=== PATIENT | male | born 1945 | race Caucasian/White ===

== ENCOUNTER 2024-07-25 14:04 | Outpatient (REF) | payer MEDICARE, OTHER, SELFPAY | END 2024-07-25 14:05 | disposition home or self-care (01) | LOC: CF 14:04 | DX: Z13.89 Encounter for screening for other disorder (principal) ==

== ENCOUNTER 2024-07-30 12:59 | Outpatient (AMB) | payer MEDICARE, OTHER, SELFPAY ==
[2024-07-30 13:06] VITALS: BMI 26.4
--- NOTE | 2024-07-30 13:06 | HO.SPINEOV ---
Vital Signs 07/30/24 13:06 Height 6 ft 1 in Weight 200 lb BMI 26.4 Intake Visit Reasons: Back pain Intake Note: Mr. Barkley is here today c/o low back pain that radiates to the legs causing numbness. Rn First Assistant Required: No Allergies No Known Allergies Allergy (Verified 07/30/24 13:07) Physical Exam Vital Signs: BMI result Body Mass Index 26.4 Assessment & Plan Assessment & Plan (1) Lumbar stenosis with neurogenic claudication: Code(s): M48.062 - Spinal stenosis, lumbar region with neurogenic claudication Category: Medical (2) Neural foraminal stenosis of lumbar spine: Code(s): M48.061 - Spinal stenosis, lumbar region without neurogenic claudication Category: Medical (3) Lumbar disc herniation with radiculopathy: Code(s): M51.16 - Intervertebral disc disorders with radiculopathy, lumbar region Category: Medical (4) Scoliosis of lumbar region due to degenerative disease of spine in adult: Code(s): M41.56 - Other secondary scoliosis, lumbar region Category: Medical Plan Dear colleague Thank you for referring Guera Barkley to the office today with a chief complaint of left-sided back pain and left leg pain. HPI: This 78-year-old male is known with spinal stenosis for several years. He saw a spine surgeon in the past but decided not to undergo any procedure. He has left-sided back pain, left leg fatigue and left leg weakness that have progressed over the years. His tells me that over the summer he could hardly walk. He constantly wants to sit down to relieve his symptoms. To make matters worse, he developed a lumbar radiculopathy a few weeks ago that radiates all the way into his foot. This pain is constant and increases with coughing and sneezing. Laying in a position improves this symptom. The following conservative treatment options were tried in the past without success antiinflammatories, tylenol, physical therapy, acupuncture physician guided home exercise plan, cortisone shots PMH: Open heart surgery 9 months ago, bilateral hip replacement, prostatectomy, type 2 diabetes Medications: Lisinopril, metoprolol, metformin, allopurinol, aspirin Allergies: NKDA Social history: . Retired. Nonsmoker Physical Exam: Pleasant male. Straight leg raise is positive with radiating pain in his left leg. He has a grade 3/5 left iliopsoas weakness. There is a 4/5 weakness of the left dorsiflexors. Normal to low reflexes. No pathological reflexes. Radiological Studies: MRI done at [place] shows a lumbar degenerative scoliosis, severe L3-4 central stenosis, severe right L4 foraminal stenosis, severe left L5 foraminal stenosis and an L5-S1 disc herniation compressing the left S1 nerve root. The latter finding is new compared to an MRI of 2021. Impression/Plan: This 78-year-old male suffering from unilateral (left) neurogenic claudication due to most likely the severe left L5 foraminal stenosis, although I can not completely exclude to severe L3-4 spinal stenosis. Additionally, he symptomatic from the L5-S1 disc herniation. I offered him a left L3-4 hemilaminotomy and L5 foraminotomy to address his unilateral neurogenic claudication symptoms. A 95% of the cases a lumbar radiculopathy will resolve within 4-6 weeks. Therefore we will revisit in the beginning of September to assess his radicular symptoms. I hope that those symptoms will be resolved and that an L5-S1 microdiskectomy is not required. He will obtain preoperative clearance from your office. 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 Thank you for allowing me to participate in your patients care. total time spent was 50 minutes in counseling ,coordination of plan, personal review of imaging, surgical decision making and subsequent plan Andrew Cruz MD, PhD Spine Fellowship Trained Neurosurgeon Director, [facility] Orders: Orders XR lumbar spine 4V min Today M41.56 - Other secondary scoliosis, lumbar region Coding Level of Care Code New Pt Level 4 (44585) Diagnoses Lumbar stenosis with neurogenic claudication M48.062 Neural foraminal stenosis of lumbar spine M48.061 Lumbar disc herniation with radiculopathy M51.16 Scoliosis of lumbar region due to degenerative disease of spine in adult M41.56
== END 2024-07-30 14:15 | disposition home or self-care (01) ==
PROVIDERS: PCP Family Medicine; Referring Provider Family Medicine; Visit Provider Neurological Surgery
DX: M48.062 Spinal stenosis, lumbar region with neurogenic claudication (principal); M48.061 Spinal stenosis, lumbar region without neurogenic claudication; M51.16 Intervertebral disc disorders with radiculopathy, lumbar region; M41.56 Other secondary scoliosis, lumbar region
CPT/HCPCS: 99204

== ENCOUNTER 2024-07-30 12:59 | Outpatient (REF) | payer MEDICARE, OTHER, SELFPAY | END 2024-07-30 13:00 | disposition home or self-care (01) | LOC: HO.HOSX 12:59 | PROVIDERS: PCP Family Medicine; Referring Provider Family Medicine; Visit Provider Neurological Surgery | DX: M48.062 Spinal stenosis, lumbar region with neurogenic claudication (principal); M41.56 Other secondary scoliosis, lumbar region; M48.061 Spinal stenosis, lumbar region without neurogenic claudication; M51.16 Intervertebral disc disorders with radiculopathy, lumbar region | CPT/HCPCS: 72110; 99202 ==

== ENCOUNTER 2024-10-03 10:49 | Outpatient (AMB) | payer MEDICARE, OTHER, SELFPAY ==
--- NOTE | 2024-10-03 11:17 | A.SPINEOV_ITS ---
Intake Visit Reasons: Finalize surgical plan Intake Note: Mr. Barkley is here today to Discuss Surgical plan. Drapery Counselor Required: No Allergies No Known Allergies Allergy (Verified 10/03/24 11:18) Assessment & Plan Assessment & Plan (1) Lumbar stenosis with neurogenic claudication: Code(s): M48.062 - Spinal stenosis, lumbar region with neurogenic claudication Category: Medical Plan Dear colleague, On 10/03/2024 I saw for follow-upGuera Barkley to finalize the surgical plan. The lumbar radiculopathy disappeared which eliminates the need for the L5-S1 microdiskectomy. We are left with the neurogenic claudication symptoms that are predominantly on the left side but may also be in the right leg intermittently. Therefore I propose to do an L3-4 decompression, left-sided approach and a left L5 foraminotomy. The procedure the expected outcome was explained and discus sed. 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 The surgery is planned for November 20. The patient is diabetic and therefore needs to be scheduled early in the morning. Coding Level of Care Code Est Pt Level 3 (36922) Diagnoses Lumbar stenosis with neurogenic claudication M48.062
== END 2024-10-03 11:55 | disposition home or self-care (01) ==
PROVIDERS: PCP Family Medicine; Visit Provider Neurological Surgery
DX: M48.062 Spinal stenosis, lumbar region with neurogenic claudication (principal)
CPT/HCPCS: 99213

== ENCOUNTER → 2024-10-03 10:49 | Outpatient (BNVA) | payer MEDICARE, OTHER, SELFPAY | PROVIDERS: PCP Family Medicine; Visit Provider Neurological Surgery | DX: M48.062 Spinal stenosis, lumbar region with neurogenic claudication (principal) | CPT/HCPCS: 99212 ==

== ENCOUNTER 2024-11-20 07:28 | Day surgery (SDC) | payer MEDICARE, OTHER, SELFPAY ==
[2024-10-28 12:38] VITALS: BP 172/76; PULSE 66; RESP 20; O2SAT 98; BMI 26.4
--- NOTE | ~2024-11-20 | FL_ITS ---
EXAMINATION: FL GUIDANCE ONLY HISTORY: Left L3-L4 Decompression, Left L5 Foraminotomy COMPARISON: Correlation is made to plain films of the lumbar spine dated 07/30/2024. TECHNIQUE: Fluoroscopy time: 0.1 minutes. Cumulative Dose: 8.93 mGy. DAP: 1.56 mGym2 Images: 2. FINDINGS: Fluoroscopic spot films of the lumbar spine in the lateral projection demonstrate probes directed toward the L4 and S1 vertebral bodies from a posterior approach. FL/FL guidance in OR IMPRESSION: Fluoroscopy during procedure. Please see procedure report for additional information. Electronically signed by: Garret Salazar MD 11/21/2024 03:[address] [facility]
--- NOTE | 2024-11-20 07:03 | MHC.SHP ---
Pre-Procedural Eval Section A - 24 Hr Update-Section A only Date of Service: 11/20/24 The patient is an INPATIENT: No Changes since office visit: No Cold of Flu in the past 2 weeks, No New Medical Problems, No Changes in Medication and No Patient answered all questions The patient has been examined within 24 hours of the surgical procedure. The History & Physical has been completed within 30 days and I have reviewed it.: No Section B - Complete if H&P > 30 days Chief Complaint: Spinal stenosis, lumbar region with neurogenic Allergies: Allergies Allergy/AdvReac Type Severity Reaction Status Date / Time No Known Allergies Allergy Verified 10/03/24 11:18 Review of Systems Sugical H&P ROS: Negative: Constitution, Cardiovascular, Respiratory, Neurological, Psychiatric, Hem-Onc, Allergic/Immunologic, Gastrointestinal, Genitourinary, Musculoskeletal, Integumentary, Endocrine and Eyes/Ears/Nose/Throat Exam Surgical H&P Exam: Normal: HEENT, Normal: Heart, Normal: Lungs, Normal: Extremities, Normal: Abdomen, Normal: Skin and Normal: Neurological (awake, alert,oriented x 3 ) Plan Diagnosis/Plan: Unchanged L3-4 decompression, left L5 foraminotomy Time Spent With Patient Time: Total time managing care of this patient today __5__ minutes.
--- NOTE | 2024-11-20 07:04 | P.DS_ITS ---
DS: Providers Provider Date of Service: 11/20/24 Date of discharge: 11/20/24 Primary care physician: Molina Dias MD Admitting clinician: Andrew Cruz DS: Diagnosis Discharge Diagnosis (1) Lumbar disc herniation with radiculopathy: Status: Acute DS: Summary Time Attestation Discharge Coordination Time (in mins): 5 Quality: Safe Use of Opioids Does Pt have an Active Cancer Diagnosis on the Problem List?: No Quality: Stroke Does the patient have a stroke diagnosis?: No Physical Exam Vital Signs: Vital Signs: Last Vital Signs Pulse 66 10/28/24 12:38 Resp 20 10/28/24 12:38 BP 172/76 H 10/28/24 12:38 Pulse Ox 98 10/28/24 12:38 O2 Del Method Room Air 10/28/24 12:38 BMI result Body Mass Index 26.4 Discharge Plan Discharge Patient Disposition: Home, Self-Care Referrals: Molina Dias MD [Primary Care Provider] - 1 Week Discharge Medications: New oxycodone 5 mg tablet 5 mg PO Q4H PRN (Reason: pain) Qty: 30 0RF Rx Instructions: Partial Fill upon patient request. docusate sodium [Colace] 100 mg capsule 100 mg PO BID Qty: 20 0RF Continued multivitamin Tablet 1 tab PO QAM metformin 1,000 mg Tablet 1,000 mg PO BID allopurinol 300 mg tablet 150 mg PO 3XW metoprolol succinate 25 mg Tablet Extended Release 24 Hr 12.5 mg PO BEDTIME albuterol sulfate 90 mcg/actuation Hfa Aerosol Inhaler 2 puff INHALATION Q4-6H PRN (Reason: Shortness Of Breath Or Wheezing) lisinopril 2.5 mg Tablet 2.5 mg PO QAM cholecalciferol (vitamin D3) [Vitamin D3] 50 mcg (2,000 unit) Capsule 50 mcg PO BEDTIME Repatha SureClick 140 mg/mL Pen Injector 140 mg SUBCUT Q2W Ozempic 0.25 mg or 0.5 mg (2 mg/3 mL) Pen Injector 0.5 mg SUBCUT QWEEK Rx Instructions: takes on flaxseed oil 1,000 mg Capsule 1,000 mg PO QAM Rx Instructions: administer with a meal vitamin B complex Tablet 1 tab PO DAILY calcium carbonate 500 mg calcium (1,250 mg) Tablet,Chewable 1,000 mg PO BEDTIME Glucosamine Chondroitin 550-30-1 mg Capsule 1 cap PO QAM fluticasone propion-salmeterol [Wixela Inhub] 250-50 mcg/dose Blister With Device 1 inh INHALATION BID Held aspirin 81 mg Tablet,Delayed Release (Dr/Ec) 81 mg PO QAM Hold Instructions: Resume on 11/20/24. you may resume in one week after surgery Discharge Orders: Discharge Order (Routine); Ordered 11/20/24 Ordered By: Nehemias De Santiago Diet: Advance to usual diet Activity on Discharge: As tolerated Activity Restrictions/Additional Instructions: After your spinal surgery we ask you to observe the following restrictions/guid elines: Activity: It is normal to feel some discomfort as you increase your activity, but that will improve with time. We ask you avoid heavy lifting or acitivities that cause pain. As a general rule, 8lbs is a safe limit for lifting right after surgery. Walk as much as you feel comfortable but not to exhaustion. You will feel extra tired the first few days after surgery. Stay well hydrated. It is OK to walk up and down stairs You may return to driving when you are off narcotics (such as vicodin, oxycodone, dilaudid, etc), and you are back to normal functional capacity. If you have any concerns please check with office before driving. Return to work is specific to each patient and each surgery, so please speak with your doctor/PA at first follow up. Please bring paperwork such as FMLA at that time if you need it filled out. Medications: For optimum pain control, it is best to start with a combination of 500 mg of Tylenol every 4 hours with 600 mg of Motrin every 8 hours, and use narcotics as needed in between for breakthrough pain. We will give you a short supply of narcotics after surgery (usually one weeks worth). If you need more please call the office but do not use more than prescribed. You will need to give our office 48 hours notice if you need narcotics refilled and we do not fill narcotics on weekends or evenings. If you are on a narcotic, it is a good idea to take a stool softener such as colace or senna to avoid constipation If you take blood thinner such as aspirin, Plavix, Coumadin, Effient, Eliquis etc for conditions such as Afib, DVT, Pulmonary embolus, coronary disease, stents etc please speak with your surgeon about specific details as to when you can resume these medications. You can resume NSAIDs on post op day 1 (eg: Motrin, Naproxen, etc). Follow up: Please call the office, , after surgery to arrange a 3 week follow up for wound check. Wound Care: You may remove your dressing on the first day after surgery. ?You may ?leave open to air. Please do not remove the steri strips underneath. they will fall off on their own in one week. IT IS NORMAL FOR THE WOUND TO OOZE OR BE BLOODY FOR A FEW DAYS AFTER SURGERY. ?IF THIS HAPPENS JUST PLACE NEW DRESSING OVER IT TO AVOID STAINING CLOTHES. You may shower on post op day # 1 We ask that you do not let the water soak the wound. If it does get wet, just towel dry lightly. Please do not scrub your incision or place any type of chemical/ointment on the wound. No tub baths, pools or jacuzzis for one month. If you have any leaking or redness from your wound, or fevers, please call office Print Language: Slovak
[2024-11-20] MEDS: methocarbamoL 750 MG TABLET PO (07:54)
[2024-11-20] MEDS: Gabapentin 300 MG CAPSULE PO (07:56)
--- NOTE | 2024-11-20 07:58 | HO.ANESPROP2 ---
Documented by User: Briana Pearson NP 11/19/24 12:29 HPI - Anesthesia Eval Consult details Narrative: 79yo M for L3-4 Lumbar Decompression (left sided approach),LEFT L5 Foraminotomy, 11/20/24 Recent URI with productive white phlegm, resolving No CP/SOB with gym (bike, rower, strength) Medically optimized per PCP Cardiac optimized. 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 (Acute) Past Medical History Medical History Aortic stenosis Neuropathy ASHD (arteriosclerotic heart disease) Elevated cholesterol Gout Arthritis Prostate cancer Iron deficiency anemia HTN (hypertension) Asthma Type 2 diabetes mellitus Atrial fibrillation Lumbar radiculopathy Lumbar stenosis Family History Family history of problems with anesthesia: No Surgical History Surgical History Hx of nasal polypectomy Hx of hand surgery Hx of prostatectomy H/O colonoscopy History of hip surgery Hx of cardiac catheterization Hx of CABG History of Problems with Anesthesia: No Social History Social History Are you a primary elderly caregiver to a significant other at home: No Do you presently have visiting nurse or other home services: No Comment: advised of trip hazard Patient Tobacco Use Status: Former Tobacco user Tobacco use type: Cigarette Years Smoked: 10 Use of substances other than those prescribed or required for medical reasons: No Have you been hit, kicked, punched, or otherwise hurt by someone within the past year? If so, by whom?: No Spiritual Healthcare Practices: none Mormon Healthcare Practices: none Cultural Healthcare Practices: none Are you DNR?: No Advance Directives Information Provided: Yes (as above noted) Advance Directives on File: No Recently lost weight without trying: No Eating poorly because of decreased appetite: No Nutrition Risks: Surgical patient >75years Poor oral hygiene: No (extracted teeth-future plan for implants) Meds Allergies Allergy/AdvReac Type Severity Reaction Status Date / Time No Known Allergies Allergy Verified 10/03/24 11:18 Home Medications ?Medication ?Instructions ?Recorded ?Confirmed ?Last Taken ?Type albuterol sulfate 90 mcg/actuation 2 puff inhalation Q4-6H PRN 10/27/24 10/28/24 Unknown History aerosol inhaler Shortness Of Breath Or Wheezing allopurinol 300 mg tablet 150 mg PO 3XW 10/27/24 10/28/24 Unknown History cholecalciferol (vitamin D3) 50 50 mcg PO BEDTIME 10/27/24 10/28/24 Unknown History mcg (2,000 unit) capsule (Vitamin D3) evolocumab 140 mg/mL subcutaneous 140 mg subcut Q2W 10/27/24 10/28/24 Unknown History pen injector (Rosy Byrnes) lisinopril 2.5 mg tablet 2.5 mg PO QAM 10/27/24 10/28/24 Unknown History metformin 1,000 mg tablet 1,000 mg PO BID 10/27/24 10/28/24 Unknown History metoprolol succinate 25 mg 12.5 mg PO BEDTIME 10/27/24 10/28/24 Unknown History tablet,extended release 24 hr multivitamin 1 tab PO QAM 10/27/24 10/28/24 Unknown History semaglutide 0.25 mg or 0.5 mg (2 0.5 mg subcut QWEEK 10/27/24 10/28/24 Unknown History mg/3 mL) subcutaneous pen injector (Ozempic) aspirin 81 mg tablet,delayed 81 mg PO QAM 10/28/24 10/28/24 Unknown History release calcium carbonate 1,000 mg PO BEDTIME 10/28/24 10/28/24 Unknown History flaxseed oil 1,000 mg capsule 1,000 mg PO QAM 10/28/24 10/28/24 Unknown History fluticasone 250 mcg-salmeterol 50 1 inh inhalation BID 10/28/24 10/28/24 Unknown History mcg/dose blistr powdr for inhalation (Wixela Inhub) glucosamine sulf dipot 1 cap PO QAM 10/28/24 10/28/24 Unknown History chlr,msm,chond 550 mg-C 30 mg-jared 1 mg capsule (Glucosamine Chondroitin) vitamin B complex 1 tab PO DAILY 10/28/24 10/28/24 Unknown History Exam Height,Weight and Vital Signs: Height 6 ft 1 in Weight 90.718 kg Last Vital Signs Pulse 66 10/28/24 12:38 Resp 20 10/28/24 12:38 BP 172/76 H 10/28/24 12:38 Pulse Ox 98 10/28/24 12:38 O2 Del Method Room Air 10/28/24 12:38 Pertinent Lab Results Pertinent Lab Results: CBC and CMP 10/2024 from outside facility [place] Narrative Narrative: EKG 10/2024 NSR @ 75 Stress ECHO 09/2023 LVEF 60% JOVANI 1.4 Airway Mallampati Class: II TM Dist: >3cm Neck ROM: Full Loose/Missing/Broken Teeth: Yes (Left lower molars missing) Heart: RRR + murmur Lungs: CTAB Assessment and Plan Assessment Anesthesia Assessment: Anesthesia Plan Discussed and PAT Visit Final Anesthetic Review Family History of Problems with Anesthesia: No History of Problems with Anesthesia: No Documented by User: Lisa Grimes DO 11/20/24 08:00 HPI - Anesthesia Eval Anesthesia Pre-Procedure Meds Is the patient on any of the following meds?: GLP1/DPP4 [facility] Past Medical History Medical History Aortic stenosis Neuropathy ASHD (arteriosclerotic heart disease) Elevated cholesterol Gout Arthritis Prostate cancer Iron deficiency anemia HTN (hypertension) Asthma Type 2 diabetes mellitus Atrial fibrillation Lumbar radiculopathy Lumbar stenosis Family History Family history of problems with anesthesia: No Surgical History Surgical History Hx of nasal polypectomy Hx of hand surgery Hx of prostatectomy H/O colonoscopy History of hip surgery Hx of cardiac catheterization Hx of CABG History of Problems with Anesthesia: No Social History Social History Are you a primary elderly caregiver to a significant other at home: No Do you presently have visiting nurse or other home services: No Comment: advised of trip hazard Patient Tobacco Use Status: Former Tobacco user Tobacco use type: Cigarette Years Smoked: 10 Use of substances other than those prescribed or required for medical reasons: No Have you been hit, kicked, punched, or otherwise hurt by someone within the past year? If so, by whom?: No Spiritual Healthcare Practices: none Mormon Healthcare Practices: none Cultural Healthcare Practices: none Are you DNR?: No Advance Directives Information Provided: Yes (as above noted) Advance Directives on File: No Recently lost weight without trying: No Eating poorly because of decreased appetite: No Nutrition Risks: Surgical patient >75years Poor oral hygiene: No (extracted teeth-future plan for implants) Meds Allergies Allergy/AdvReac Type Severity Reaction Status Date / Time No Known Allergies Allergy Verified 10/03/24 11:18 Home Medications ?Medication ?Instructions ?Recorded ?Confirmed ?Last Taken ?Type albuterol sulfate 90 mcg/actuation 2 puff inhalation Q4-6H PRN 10/27/24 10/28/24 Unknown History aerosol inhaler Shortness Of Breath Or Wheezing allopurinol 300 mg tablet 150 mg PO 3XW 10/27/24 10/28/24 Unknown History cholecalciferol (vitamin D3) 50 50 mcg PO BEDTIME 10/27/24 10/28/24 Unknown History mcg (2,000 unit) capsule (Vitamin D3) evolocumab 140 mg/mL subcutaneous 140 mg subcut Q2W 10/27/24 10/28/24 Unknown History pen injector (Rosy Byrnes) lisinopril 2.5 mg tablet 2.5 mg PO QAM 10/27/24 10/28/24 Unknown History metformin 1,000 mg tablet 1,000 mg PO BID 10/27/24 10/28/24 Unknown History metoprolol succinate 25 mg 12.5 mg PO BEDTIME 10/27/24 10/28/24 Unknown History tablet,extended release 24 hr multivitamin 1 tab PO QAM 10/27/24 10/28/24 Unknown History semaglutide 0.25 mg or 0.5 mg (2 0.5 mg subcut QWEEK 10/27/24 10/28/24 Unknown History mg/3 mL) subcutaneous pen injector (Ozempic) aspirin 81 mg tablet,delayed 81 mg PO QAM 10/28/24 10/28/24 Unknown History release calcium carbonate 1,000 mg PO BEDTIME 10/28/24 10/28/24 Unknown History flaxseed oil 1,000 mg capsule 1,000 mg PO QAM 10/28/24 10/28/24 Unknown History fluticasone 250 mcg-salmeterol 50 1 inh inhalation BID 10/28/24 10/28/24 Unknown History mcg/dose blistr powdr for inhalation (Wixela Inhub) glucosamine sulf dipot 1 cap PO QAM 10/28/24 10/28/24 Unknown History chlr,msm,chond 550 mg-C 30 mg-jared 1 mg capsule (Glucosamine Chondroitin) vitamin B complex 1 tab PO DAILY 10/28/24 10/28/24 Unknown History Exam Exam Date and Time: 11/20/24 0758 Height,Weight and Vital Signs: Height 6 ft 1 in Weight 90.718 kg Last Vital Signs Pulse 66 10/28/24 12:38 Resp 20 10/28/24 12:38 BP 172/76 H 10/28/24 12:38 Pulse Ox 98 10/28/24 12:38 O2 Del Method Room Air 10/28/24 12:38 Airway Mallampati Class: I TM Dist: <=3cm Neck ROM: Full Loose/Missing/Broken Teeth: Yes (Left lower molars missing) Heart: S1S2, +murmur Assessment and Plan Assessment Anesthesia Assessment: Anesthesia Plan Discussed and Chart Reviewed Final Anesthetic Review Family History of Problems with Anesthesia: No History of Problems with Anesthesia: No NPO: Yes ASA Class: III Final Preanesthetic Review: No Changes in Pt Med Stat, Meds/Allgs Chart Reviewed, Consent Obtained/Reviewed and Anes Risks/Benef Reviewed Patient Risk: Intermediate Procedure Risk: Intermediate Anesthetic Plan Anesthetic Plan: GA and Agree w/ Assess. and Plan Disposition: Standard PACU
[2024-11-20 08:03] LABS: Glucose, Whole Blood 157 mg/dL (60-115)
[2024-11-20] MEDS: Lactated Ringers 1,000 ML 100 ML IVCONT (08:06)
[2024-11-20 08:07] VITALS: BP 158/76; PULSE 74; RESP 15; TEMP 36.6; O2SAT 97
[2024-11-20] MEDS: ceFAZolin Sodium/Dextrose,Iso 2 GM/50 ML PIGGYBACK IV (09:15)
--- NOTE | 2024-11-20 10:30 | P.OP_ITS ---
Operative Note Operative Note Date of Service: 11/20/24 Narrative: Preoperative Diagnosis: L3-4 central spinal stenosis/lateral recess stenosis and left L5 neuro foraminal stenosis Operation: Left L3-4 Laminotomy, Partial facetectomy and left L5 foraminotomy with use of microscope Consent Informed Consent was obtained for this operation. I have explained the nature, purpose and benefits of the operation. I have discussed the risks and benefit of the operation including possible complications or adverse events with patient/family. Alternative(s) were discussed with the patient with their relative benefits and risks as well as the consequences of not accepting the operation were included in obtaining consent. Surgeon: JUAN SPENCER MD, PHD Procedure Assisted By: Nehemias Dowell Description of Procedure This patient is suffering from predominantly left-sided radiculopathy. The MRI shows L3-4 spinal stenosis and severe left L5 foraminal stenosis the patient was offered decompression of these levels. The procedure complications were explained. The patient was consented. The patient was brought to the operating room and endotracheally intubated. The patient was turned in prone position on the Benjy frame. Prep and drape was done followed by timeout. The Physician medical office receptionist assistant provided access. A mid lumbar incision was made followed by release of the paravertebral muscle on the left side to expose the L3-L5 lamina and facet joints. An intraoperative x-ray was obtained to confirm the correct level. The microscope was brought in. I took over the procedure. The high-speed drill was used to do a left L3-4 laminotomy until flavum ligament was reached. A #2 Kerrison was used to expand the laminotomy near flush to the pedicles and to include a partial facetectomy. The flavum ligament was opened and resected with a #3 Kerrison to decompress the underlying thecal sac. The flavum ligament was removed to decompress the lateral recess and the exiting L4 nerve root. A long nerve hook could be easily passed along the medial side of the pedicle as a sign of adequate decompression. And then a left L5 laminotomy was done. Underlying dura was identified as well as the foramen. A partial facetectomy was done. The medial wall of the L5 pedicle was identified and then a foraminotomy was done to decompress the L5 nerve root. Despite all do removal it remained very hard to get an instrument fully out to the foramen. According to the MRI the stenosis was more of the medial side of foramen and therefore I thought this would be sufficient for the L5 nerve root decompression. The microscope was removed. Hemostasis was done. The physician medical office receptionist assistant close the Incision in 2 layers. Steri-Strips were used to approximate incision. An OpSite with Tegaderm was used to cover the incision. All sponge needle counts were correct. Patient was extubated and transported in stable is to recovery room. Anesthesia: General Estimated Blood Loss (ml): 20 mL Complications: None Duration of Surgery: 65 Minutes Postoperative Plan: Discharge to home
[2024-11-20 10:50] VITALS: BP 110/84; PULSE 60; RESP 16; TEMP 36.3; O2SAT 98
[2024-11-20 10:55] VITALS: BP 142/65; PULSE 65; RESP 15; O2SAT 98
[2024-11-20 11:00] VITALS: BP 138/63; PULSE 60; RESP 16; O2SAT 98
[2024-11-20 11:05] VITALS: BP 151/67; PULSE 64; RESP 16; O2SAT 96
[2024-11-20 11:20] VITALS: BP 152/56; PULSE 62; RESP 14; TEMP 36.5; O2SAT 98
== END 2024-11-20 12:22 | disposition home or self-care (01) ==
LOC: HO.SSS 07:29
PROVIDERS: PCP Family Medicine; Visit Provider Neurological Surgery
PROC: (CPT 63047; principal; 2024-11-20 09:30)
DX: M48.062 Spinal stenosis, lumbar region with neurogenic claudication (principal); M51.16 Intervertebral disc disorders with radiculopathy, lumbar region; M41.56 Other secondary scoliosis, lumbar region; I10 Essential (primary) hypertension; I48.91 Unspecified atrial fibrillation; Z95.1 Presence of aortocoronary bypass graft; J45.909 Unspecified asthma, uncomplicated; D50.9 Iron deficiency anemia, unspecified; E11.9 Type 2 diabetes mellitus without complications; Z79.51 Long term (current) use of inhaled steroids; Z79.899 Other long term (current) drug therapy; Z79.84 Long term (current) use of oral hypoglycemic drugs; Z79.85 Long-term (current) use of injectable non-insulin antidiabetic drugs; Z98.890 Other specified postprocedural states; Z87.891 Personal history of nicotine dependence
CPT/HCPCS: 63047; 82947; J0131; J0690; J1885; J2003; J2371; J2405; J2704; J3010

== ENCOUNTER → 2024-11-20 07:28 | Outpatient (BNV) | payer MEDICARE, OTHER, SELFPAY | PROVIDERS: PCP Family Medicine; Visit Provider Neurological Surgery | DX: M48.062 Spinal stenosis, lumbar region with neurogenic claudication (principal) | CPT/HCPCS: 63047; 63048; 99499 ==

== ENCOUNTER 2024-12-11 15:28 | Outpatient (AMB) | payer MEDICARE, OTHER, SELFPAY ==
--- NOTE | 2024-12-11 15:29 | HO.SPINEOV ---
Intake Visit Reasons: 1st post op Intake Note: Mr. Barkley is here today for his 1st post op. Urgent Care Physician Required: No Allergies No Known Allergies Allergy (Verified 12/11/24 15:29) Assessment & Plan Assessment & Plan (1) Lumbar disc herniation with radiculopathy: Code(s): M51.16 - Intervertebral disc disorders with radiculopathy, lumbar region Category: Medical Plan Mr Barkley is 3 weeks out from his lumbar foraminotomy. His leg pain is completely gone and he is walking better than he has an a long time. He has up to 3 miles. He still has chronic back pain, but it is very manageable to a point where he does not even need to take Tylenol. We discussed activity guidelines, restrictions and expectations after lumbar foraminotomy. His wound is healed up beautifully. I would like to see him back in 6 weeks for final checkup. I told him that if he is doing well, he does not need to come back for his final visit. Nehemias Cruz MD, PhD [facility] Coding Level of Care Code Global (59065) Diagnoses Lumbar disc herniation with radiculopathy M51.16
--- OUTSIDE RECORDS SUMMARY | 2024-12-11 18:59 | XMS_ITS | Data Portability ---
Author Organization ID - [facility], [facility] - INPATIENT Address [address] [place] [address] Care Team Providers Care Wardrobe Supervisor Name Role Phone [place] Primary Care Provider Assessment Encounter Date Assessment Date Assessment LastModified by Organization Details LastModified Time 09/08/2022 09/08/2022 Independent interpretation of the x-rays from today and the clinical examination of the index right total hip arthroplasty at 13 years in the revision total hip arthroplasty of 4-1/2 years? s table. He has excellent pain-free motion in both hips. His x-rays appear to be stable. He does have quite a lot of complaints from his lumbar spine into the leg which he believes is spinal stenosis. I would be tending to agree with him. We have discussed now the right SHAGGY at 13 years and the left SHAGGY revision at 4 1/2 years at the follow up visit. We have discussed the continued use of abductor strengthening and stretching and the continued attention to rehabilitation of the quadriceps and functional rehabilitation of the lower extremity in general. We have also discussed dislocation precautions and anti-biotic precautions. The anti-biotic precautions are to continue and they have been discussed in great detail. Antibiotic prescriptions available at any time. Leg lengths were discussed as well and the potential need for continuing functional rehabilitation to maintain the sense of proper pelvic balance. At this point I recommended revisit with Robbi. I believe his implants in his hips are stable. He will contact us if there is further problems with the leg that he believes is from the hip. At this point I believe his spinal stenosis may be the real culprit and he will be seeing Robbi in the upcoming weeks. All questions answered. [email or web address] Not available 09/08/2022 10:03:47 12/06/2022 12/06/2022 I personally reviewed his lumbar spine MRI from August 2022. There is severe multilevel disc degeneration and spondylosis. There may be a subtle anterolisthesis at L4-5. There is severe right and moderate left lateral recess narrowing at L4-5. There is moderately severe central stenosis at L3-4. There is mild stenosis at L2-3. At L1-2, there is moderate stenosis, in part from a central disc herniation. There is a mild left convex degenerative scoliosis. I personally reviewed earlier x-rays of the lumbar spine performed in September 2019. There is poor lumbar lordosis but no instability on flexion-extension. His was able to pull up May 2020 EMG results showiing mild sensorimotor polyneuropathy, left adductor longus denervation possibly secondary to his hip surgery, and possible mild chronic bilateral L4 radiculopathies. He will need a new EMG to localize the source of his current difficulty. His left leg heaviness could be from L1-2 stenosis, but the fact that his symptoms are largely unilateral makes this an unusual clinical pattern for central stenosis. His foot numbness could be from neuropathy. His left buttock pain could be from lower lumbar radiculopathy, but his MRI shows more neural compression in the lower lumbar spine on the right. The encounter occurs during a Public Health Emergency (PHE), as defined by law, due to respiratory-transm itted infectious disease. There was additional practice expense incurred due to the Public Health Emergency. This additional expense includes but is not limited to: ? Additional clinical staff and medical technical solution architect time for pre-screening ? Time spent reviewing COVID social distancing guidelines, precautions, instructions, and signage ? Patient symptom checking upon arrival ? Application, removal, and purchasing of additional PPE ? Additional cleaning of exam room, equipment, supplies, as well as cleaning supplies for that purpose. I spent 30 minutes on the day of the visit, preparing for the visit by reviewing records/test results, obtaining patient history, performing a medically necessary examination, counseling/educati ng the patient on lumbar stenosis, interpreting test results, ordering tests. [email or web address] Not available 12/28/2022 20:05:26 Plan of Treatment Reminders Order Date Submit Date Provider Last Modified By Organization Details Last Modified Time Details Appointments None recorded. Lab None recorded. Referral neurologis t referral 2022 023 CONSTANCE Mora MD, [address] [place], [address], 3 08:05:54 Procedures None recorded. Surgeries None recorded. Imaging None recorded. Medication Orders None recorded. Patient TargetsNo targets recorded. Patient Instructions Encounter Date Encounter Id Patient Instructions Last Modified By Organization Details Last Modified Time 09/08/2022 [id number] lumbar spinal stenosis: care instructions [email or web address] Not available 09/08/2022 10:05:47 Reason for Referral Neurologist Referral for Spi nal stenosis of lumbar region Consult/EMG - left lower extremity weakness/buttock pain, assess specific nerve root involvement Referring Physician: Robbi Vera, Neurosurgery, Encounter Date: 12/06/2022 Results Created Date Observation Date Name Description Value Unit Range Abnormal Flag Note LastModifiedBy Organization Detail LastModifiedTime 09/13/20 22 09/05/2022 MRI, lumba r spine , w/o contr ast No observ ation record ed. [email or web address] [facility] [address] [place], [address], 09/13/2022 11:17:34 Result Notes None recorded. Problems Name Problem SNOMED Code Status Onset Date Resolution Date Notes Provider Name and Address Organization Details Recorded Time Asthma 941937934 Active 2019 Not Available [facility] 2 22:13:03 Hypertensive disorder 14735895 Active 2019 Not Available [facility] 2 22:13:03 Diabetes mellitus 13723611 Active 2019 Not Available [facility] 2 22:13:03 Spinal stenosis of lumbar region 53966693 Active 2022 ROBBI VERA MD [address] [place] [address], [phone] , [facility] - [facility] 3 12:42:07 Problem Notes None recorded. Procedures Surgical History Date Name Laterality Status Provider Name and Address Organization Details Recorded Time 09/17/19 18 Orthopaedic Surgery completed Moni Manoli [facility] 09/08/2022 09:49:38 09/17/19 13 Other completed [facility] 12/06/2022 11:49:52 09/17/19 10 operation on prostate completed [facility] 12/06/2022 11:49:24 09/17/19 00 total replacement of hip completed [facility] 12/06/2022 11:49:36 09/17/18 60 procedure on nose completed Not Available [facility] 07/17/2022 22:13:43 Imaging Results Imaging Date Name Status LastModified by Organiz ation Details LastModified Time 09/05/2022 MRI, lumbar spine, w/o contrast completed [email or web address] [facility] [address] [place], [address], 09/13/2022 11:17:34 Procedure Notes None recorded. Medical Equipment None Reported. Allergies No known drug allergies Medications Name Sig Start Date Stop Date Status Note LastModified by Organization Details LastModified Time amoxicillin 500 mg capsule 10/10 completed Not Available Not Available Not Available prednisone 20 mg tablet 10/10 completed Not Available Not Available Not Available metformin 1,000 mg tablet active Not Available Not Available Not Available allopurinol 300 mg tablet active Not Available Not Available Not Available lisinopril 40 mg tablet 1/2 one day and a whole the other day active Not Available Not Available No t Available Vitamin C 08/25 completed Not Available Not Available Not Available albuterol 12/06 completed Not Available Not Available Not Available calcium active Not Available Not Avail able Not Available vitamin B complex 2019 active Not Available Not Available Not Avai lable Aspir-81 08/25 completed Not Available Not Available Not Available Vitamin D3 2019 active Not Available Not Available Not Avai lable [place] 3 2019 active Not Available Not Available Not Avai lable multivitami n active Not Available Not Available Not Available Advair Diskus active Not Available Not Available Not Available OneTouch Delica Lancets 30 gauge 10/10 completed Not Available Not Available Not Available Qvar RediHaler 80 mcg/actuati on HFA breath activated aerosol 08/25 completed Not Available Not Available Not Available Shingrix (PF) 50 mcg/0.5 mL intramuscul ar suspension, kit 10/10 completed Not Available Not Available Not Available Ozempic 0.25 mg or 0.5 mg (2 mg/1.5 mL) subcutaneou s pen injector Inject by subcutane ous route. active Not Available Not Available No t Available Glucosamine Chondroitin 2019 active Not Available Not Available Not Avai lable Vitals Date Recorded Body mass index (BMI) Body height Body weight Provider Name and Address Organization Details Last Updated DateTime 10/10/2019 29 kg/m2 185.42 cm 16020.32 g Not Available [facility] 07/17/2022 22:12:56 Date Recorded Body height Body mass index (BMI) Body weight Provider Name and Address Organization Details Last Updated DateTime 09/08/2022 186.69 cm 28 kg/m2 59675.36 g Moni Stockton [facility] 09/08/2022 09:48:24 Date Recorded Body height Body mass index (BMI) Body weight Provider Name and Address Organization Details Last Updated DateTime 12/06/2022 186.69 cm 28 kg/m2 20900.36 g Magui Chester [facility] 12/06/2022 11:46:51 Social History Question Answer Notes LastModified by Organizat ion Details LastModified Time Tobacco Smoking Status Former Smoker quit 40 years ago Magui [facility] 12/06/2022 11:48:53 What Is Your Level Of Alcohol Consumption? Occasional Information not available 09/08/2022 What Is Your Level Of Caffeine Consumption? Occasional Information not available 09/08/2022 Do You Or Have You Ever Used E-cigarettes Or Vape? Never Used Electronic Cigarettes Information not available 09/08/2022 What Is Your Occupation? Retired Information not available 09/08/2022 Have You Had Cortisone? Yes Information not available 09/08/2022 Do You Or Have You Ever Used Smokeless Tobacco? Never Used Smokeless Tobacco Information not available 09/08/2022 How Much Tobacco Do You Smoke? No Information not available 09/08/2022 What Types Of Sporting Activities Do You Participate In? Sailing Information not available 09/08/2022 How Many Years Have You Smoked Tobacco? 10 Information not available 09/08/2022 Sex: Unknown Functional Status Question Answer Note LastModified by Organizat ion Details LastModified Time What is your exercise level? Occasional Information not available 09/08/2022 Mental Status None recorded. Family History Relationship Description Onset Age of this Age Resolved Age Notes LastModified by Organization Details LastModified Time Father No current problems or disability Not available 09/08 09:49:21 Mother No current problems or disability Not available 09/08 09:49:21 Medical History Condition Response HIV or AIDS N High Blood Pressure Y Irregular Heartbeat N MRSA N Any Other Significant Medical Issues N Weight Gain / Loss N Hearing Loss N Angina, Heart Failure or Attack N Night Sweats N Seizures / Epilepsy N Osteoarthritis / Rheumatoid arthritis / Other Y Cancer Y Stroke N Ulcer / Stomach Bleeding / Indigestion N Visual Loss or Glaucoma N Blood Clots / Phlebitis N Heart Problems N Depression or Anxiety N Emphysema / Chronic Bronchitis N Reaction to General/Local Anesthesia N Hepatitis / Jaundice N Kidney / Bladder Infections N Diabetes Y Bleeding Disorder N Chemical Dependency / Alcoholism N Thyroid Disorder N Psoriasis / Skin Rash N Heart Disease N Pulmonary Embolism N Asthma / Shortness of Breath / Sleep Pharmacy Benefits Coordinator ea (please specify) Y Past Encounters Encounter ID Performer Location Encounter Start Date Encounter Closed Date Diagnosis/Indication Diagnosis SNOMED-CT Code Diagnosis ICD10 Code Diagnosis Note [id number] [facility] Office [address] [address] 10/10/2019 00:00:00 10/10/2019 19:58:13 [id number] LENA LAI MD [facility] Office [address] [address] 09/08/2022 09:16:41 09/08/2022 12:23:51 Osteoarthritis of bilateral hip joints 8918922754 48348 M16.0 History of total replacement of bilateral hip joints 1863368938 546926 Z96.643 Mechanical complication of internal joint prosthesis 489986683 T84.091D Spinal deandre nosis of lumbar region 74845541 M48.899 [id number] ROBBI VERA MD [address] [address] 12/06/2022 10:37:46 12/06/2022 13:56:26 Spinal stenosis of lumbar region 94840991 M48.062 Health Concerns Section Related Observation LastModified by Organization Detai ls LastModified Time None Recorded Concern Status LastModified by Organization Details LastModified Time None Recorded Advance Directives Directive None Recorded Payers Encounter Date Sequence Insurance Name Policy Number Policy Valentine Covered Member ID Valentine Member ID Guarantor Name 09/08/2022 1 [place]ARE [place]: [employer] Jorma Rubia [id number] Jorma Rubia 09/08/2022 2 [facility] PLAN - NAVIGATOR (PPO) [id number] Jorma Rubia [id number] Jorma Rubia 12/06/2022 1 [place]: [employer] Jorma Rubia [id number] Jorma Rubia 12/06/2022 2 [facility] [employer] PLAN - NAVIGATOR (PPO) [id number] Jorma Rubia [id number] Jorma Rubia Notes Date Note Type Note Provider Name and Address Organization Details Recorded Time 09/08/2022 text/html Patient is now 4-1/2 years after left total hip arthroplasty revision. He is 13 years after right index total hip arthroplasty. He reports his right hip is doing great. He is never had any problems whatsoever on the right side. Reports he has had left leg pain for some time even after the revision surgery. He is not certain is from the leg or if it may be from some of his lumbar stenosis. About 3 months ago he wrenched his back badly and has had some pain into the left leg and into his low back that seems to be slowly resolving. He had pain at the top of the leg which is slowly resolving. He has had no fevers or chills. He did have a wrench and fall at least a couple of different times with resulting pain to the legs right and left which have resolved but this left leg pain now seems to be resolving very slowly. He has been following with Robbi Chand. He will be visiting with him again soon. He has never had injections in his back but has had an MRI scan there. LENA LAI MD [address] [place] [address], [phone], [facility] 09/08/2022 10:05:52 12/06/2022 text/html I saw Mr. Barkley in Sep 2019 for leg pain. He feels maybe slightly worse than 3 years ago. He has some low back pain, but it's not a major issue. It is worse with flexion. He has no pain sitting or lying down. The left sided low back pain extends to his left buttock. He has no pain down into his left leg. He has numbness and tingling in his feet. He describes a 'lack of feeling' in his feet just to his ankles, initially on the left and now on both sides. This is actually worse at night, than when walking. He recalls having EMG testing about 3 years ago that was 'inconclusive'. He feels he can walk a mile, and then he's limited by a sense of fatigue in his left leg. ROBBI VERA MD [address] [place] [address], [phone], [facility] 12/28/2022 20:47:24
--- OUTSIDE RECORDS SUMMARY | 2024-12-11 18:59 | XMS_ITS | Encounter Summary ---
Author Organization [facility] Address [address] [place] [address] Care Team Providers Care Vp Customer Service Name Role Phone Molina Dias MD Primary Care Provider [phone] Encounter Details Date Type Department Care Team (Late st Contact Info) Description 10/29/2024 Orders Only EM Cardiac Noninvasive [address] [place] [address] Zoila Respiratory Therapy Manager, [address] [place] [address] Social History Tobacco Use Types Packs/Day Years Used Date Smoking Tobacco: Former Cigarettes Q uit: 1982 Smokeless Tobacco: Never Comments:: Alcohol Use Standard Drinks/Week Comments Not Currently 0 (1 standard drink = 0.6 oz pure alcohol) non-alcoholic beer made by [employer] [facility] Workboardities Answer Date Recorded In the past 12 months has th e electric, gas, oil, or water company threatened to shut off services in your home? No 10/14/2024 Hunger Vital Sign Answer Date Recorded Within the past 12 months, y ou worried that your food would run out before you got the money to buy more. Never true 10/14/19 25 Within the past 12 months, t he food you bought just didn't last and you didn't have money to get more. Never true 10/14/2024 Transportation Answer Date Recorded In the past 12 months, has l ack of reliable transportation kept you from medical appointments, meetings, work or from getting things needed for daily living? No 10/14/2024 Housing Answer Date Recorded Housing Risk Low 2 10/14/2024 Housing Risk Medium Not on file 10/14/2024 Housing Risk High Not on file 10/14/2024 What is your living situation today? LSSTEADY 10/14/2024 Sex and Gender Information Value Date Recorded Sex Assigned at Male 05/21/2021 8:13 AM EDT Legal Sex Male 12:55 AM EDT Gender Identity Male 05/21/2021 8:13 AM EDT Sexual Orientation Straight 05/21/2021 8: 13 AM EDT Occupation Industry Job Start Date Job End Date Retired Not on file Not on file Not on file documented as of this encounter Plan of Treatment Upcoming Encounters Date Type Department Care Team (Late st Contact Info) Description 12/29/2024 8:40 AM EDT Follow-Up [facility] 4th floor Cardiology Medicine [address] [place] [address] Corporate Paralegal: Leeann Garcia MD [address] [place] [address] documented as of this encounter Procedures * Due to [facility] law, this organization might not be sharing negative HIV tests. Procedure Name Priority Date/Time Associated Diagnosis Comments ECG 12-LEAD Routine 10/29/2024 3:13 PM EST documented in this encounter Results * Due to [employer] law, this organization might not be sharing negative HIV tests. * ECG 12 lead (10/29/2024 3:13 PM EST) Ventricular Rate EKG 75 BPM MUSE EKG Atrial Rate 75 BPM MUSE EKG OR Interval 150 ms MUSE EKG QRS Interval 114 ms MUSE EKG QT Interval 408 ms MUSE EKG QTC Interval 455 ms MUSE EKG P Hyden 54 degrees MUSE EKG R Hyden 15 degrees MUSE EKG T Wave Hyden 38 degrees MUSE EKG 10/29/2024 3:13 PM EST 11/14/2024 10:14 AM EST Impressions MUSE EKG - 11/14/2024 10:14 AM EST NORMAL SINUS RHYTHM NORMAL ECG WHEN COMPARED WITH ECG OF 31-JAN-2024 09:27, INCOMPLETE RIGHT BUNDLE BRANCH BLOCK IS NO LONGER PRESENT Confirmed by Gavin Hernández ([id number]) on 11/14/2024 10:14:54 AM us Respiratory Therapy Manager Zoila CHIRINOS ECG ORDERABLES Final Resu lt MUSE EKG documented in this encounter Visit Diagnoses Not on filedocumented in this encounter Care Teams Vp Customer Service Relationship Specialty Start Date End Date Molina Dias MD [address] [place] [address] PCP - General Family Medicine 04/05/17 documented as of this encounter
--- OUTSIDE RECORDS SUMMARY | 2024-12-11 18:59 | XMS_ITS | Encounter Summary ---
Author Organization [facility] Address [address] [place] [address] Care Team Providers Care Transplant Case Manager Name Role Phone Molina Dias MD Primary Care Provider [phone] Encounter Details Date Type Department Care Team (Late st Contact Info) Description 10/21/2024 myChart Message [facility] Family Practice [address] [place] [phone] Molina Dias MD [address] [place] [address] Thanks Social History Tobacco Use Types Packs/Day Years Used Date Smoking Tobacco: Former Cigarettes Q uit: 1982 Smokeless Tobacco: Never Comments:: Alcohol Use Standard Drinks/Week Comments Not Currently 0 (1 standard drink = 0.6 oz pure alcohol) non-alcoholic beer made by [employer] [facility] [employer] Answer Date Recorded In the past 12 months has [employer] gas, oil, or water [employer] threatened to shut off services in your [...] Info) Description 12/29/2024 8:40 AM EDT Follow-Up [facility] 4th floor Cardiology Medicine [address] [place] [address] Community Support Associate: Adilia Mosquera, Leeann Mejias MD [address] [place] [address] documented as of this encounter Visit Diagnoses Not on filedocumented in this encounter Care Teams Transplant Case Manager Relationship Specialty Start Date End Date Molina Dias MD [address] [place] [address] PCP - General Family Medicine 04/05/17 documented as of this encounter
--- OUTSIDE RECORDS SUMMARY | 2024-12-11 18:59 | XMS_ITS | Encounter Summary ---
Author Organization [facility] Address [address] [place] [address] Care Team Providers Care Editorial Specialist Name Role Phone Molina Dias MD Primary Care Provider [phone] Encounter Details Date Type Department Care Team (Late st Contact Info) Description 10/21/2024 myChart Message [facility] Family Practice [address] [place] [phone] Molina Dias MD [address] [place] [address] You Social History Tobacco Use Types Packs/Day Years Used Date Smoking Tobacco: Former Cigarettes Q uit: 1982 Smokeless Tobacco: Never Comments:: Alcohol Use Standard Drinks/Week Comments Not Currently 0 (1 standard drink = 0.6 oz pure alcohol) non-alcoholic beer made by [facility] [employer] Answer Date Recorded In the past 12 months has [email or web address], gas, oil, or water [employer] threatened to shut off services in your [...] Info) Description 12/29/2024 8:40 AM EDT Follow-Up [facility] 4th floor Cardiology Medicine [address] [place] [address] Agile Test Lead: Adilia Mosquera, Leeann Mejias MD [address] [place] [address] documented as of this encounter Visit Diagnoses Not on filedocumented in this encounter Care Teams Editorial Specialist Relationship Specialty Start Date End Date Molina Dias MD [address] [place] [address] PCP - General Family Medicine 04/05/17 documented as of this encounter
--- OUTSIDE RECORDS SUMMARY | 2024-12-11 18:59 | XMS_ITS | Encounter Summary ---
Author Organization [facility] Address [address] [place] [address] Care Team Providers Care Electrician Helper [employer]otive Name Role Phone Molina Dias MD Primary Care Provider [phone] Encounter Details Date Type Department Care Team (Latest Contact Info) Description 10/12/2023 SeeWhy Message [facility] V[facility] Interventional Lab [address] [place] [address] Mychart, Generic Provider [address] [place], [place] [phone] Pre-procedure Instructions Social History Tobacco Use Types Packs/Day Years Used Date Smoking Tobacco: Former Cigarettes Q uit: 1982 Smokeless Tobacco: Never Comments:: Alcohol Use Standard Drinks/Week Comments Not Currently 0 (1 standard drink = 0.6 oz pure alcohol) non-alcoholic beer made by [email or web address] Transportation Answer Date Recorded Please ottoniel the areas for ich the patient would like information or assistance: None Apply 02/27/2023 Lack of Transportation (Medical) Not on file 02/27/2023 Housing Stability Answer Date Recorded Please ottoniel the areas for ich the patient would like information or assistance: None Apply 02/27/2023 Unable to Pay for Housing in the Last Year Not o n file 02/27/2023 Last EPDS Total Score Not on file 02/27/2023 Unstable Housing in the Last Year Not on file 02/27/2023 Sex and Gender Information Value Date Recorded [...] Info) Description 12/29/2024 8:40 AM EDT Follow-Up [facility] 4th floor Cardiology Medicine [address] [place] [address] Residential Designer: Leeann Garcia MD [address] [place] [phone] documented as of this encounter Visit Diagnoses Not on filedocumented in this encounter Care Teams Electrician Helper Automotive Relationship Specialty Start Date End Date Molina Dias MD [address] [place] [address] PCP - General Family Medicine 04/05/17 documented as of this encounter
--- OUTSIDE RECORDS SUMMARY | 2024-12-11 18:59 | XMS_ITS | Encounter Summary ---
Author Organization [facility] Address [address] [place] [address] Care Team Providers Care Student Success Coach Name Role Phone Molina Dias MD Primary Care Provider [phone] Encounter Details Date Type Department Care Team (Late st Contact Info) Description 10/22/2024 myChart Message [facility] Family Practice [address] [place] [phone] Molina Dias MD [address] [place] [address] labs Social History Tobacco Use Types Packs/Day Years Used Date Smoking Tobacco: Former Cigarettes Q uit: 1982 Smokeless Tobacco: Never Comments:: Alcohol Use Standard Drinks/Week Comments Not Currently 0 (1 standard drink = 0.6 oz pure alcohol) non-alcoholic beer made by [employer] [facility] [employer] Answer Date Recorded In the past 12 months has [employer], gas, oil, or water [employer] threatened to shut off services in your [...] on file documented as of this encounter Miscellaneous Notes * Telephone Encounter - MARIE Mcduffie - 10/23/2024 10:58 AM EST Unfortunately we do not have anyone in [place] to complete an EKG for the patient. I booked the patient with Kristine Meza NP on 11/26/2024 for an EKG in office. The patient is all set. documented in this encounter Plan of Treatment Upcoming Encounters Date Type Department Care Team (Late st Contact Info) Description 12/29/2024 8:40 AM EDT Follow-Up [facility] 4th floor Cardiology Medicine [address] [place] [address] Scheduler Maintenance: Leeann Garcia MD [address] [place] [address] documented as of this encounter Visit Diagnoses Not on filedocumented in this encounter Care Teams Student Success Coach Relationship Specialty Start Date End Date Molina Dias MD [address] [place] [address] PCP - General Family Medicine 04/05/17 documented as of this encounter
--- OUTSIDE RECORDS SUMMARY | 2024-12-11 18:59 | XMS_ITS | Encounter Summary ---
Author Organization [facility] Address [address] [place] [address] Care Team Providers Care Phys Ther Name Role Phone Molina Dias MD Primary Care Provider [phone] Encounter Details Date Type Department Care Team (Late st Contact Info) Description 11/14/2024 Telephone [facility] 4th floor Cardiology Medicine [address] [place] [address] Religious Leader: Adilia Taylor Telephone Intake, Staff Social History Tobacco Use Types Packs/Day Years Used Date Smoking Tobacco: Former Cigarettes Q uit: 1981 Smokeless Tobacco: Never Comments:: Alcohol Use Standard Drinks/Week Comments Not Currently 0 (1 standard drink = 0.6 oz pure alcohol) non-alcoholic beer made by [employer] [facility] [employer] Op[employer] Answer Date Recorded In the past 12 [...] encounter Miscellaneous Notes * Telephone Encounter - Sofie Romero - 11/14/2024 11:53 AM EST Clearance letter and office note faxed. * Telephone Encounter - Benita Nuñez - 11/14/2024 11:43 AM EST Est Patient of Dr.Carlson Stone's office is calling in due to cardiac clearance and the most recent office notes. Patient is having spine surgery next week They state they spoke to someone and they were supposed to fax it over but they never did Can reach fax at [phone] and phone number [phone] documented in this encounter Plan of Treatment Upcoming Encounters Date Type Department Care Team (Late st Contact Info) Description 12/29/2024 8:40 AM EDT Follow-Up [facility] 4th floor Cardiology Medicine [address] [place] [address] Religious Leader: Leeann Garcia MD [address] [place] [address] documented as of this encounter Visit Diagnoses Not on filedocumented in this encounter Care Teams Phys Ther Relationship Specialty Start Date End Date Molina Dias MD [address] [place] [address] PCP - General Family Medicine 04/05/17 documented as of this encounter
--- OUTSIDE RECORDS SUMMARY | 2024-12-11 18:59 | XMS_ITS | Encounter Summary ---
Author Organization [facility] Address [address] [place] [address] Care Team Providers Care Dude Wrangler Name Role Phone Molina Dias MD Primary Care Provider [phone] Reason for Visit * Reason Comments Med Refill Encounter Details Date Type Department Care Team (Late st Contact Info) Description 12/11/2024 Refill [facility] Family Practice [address] [place] [phone] Molina Dias MD [address] [place] [address] Social History Tobacco Use Types Packs/Day Years Used Date Smoking Tobacco: Former Cigarettes Q uit: 1982 Smokeless Tobacco: Never Comments:: Alcohol Use Standard Drinks/Week Comments Not Currently 0 (1 standard drink = 0.6 oz pure alcohol) non-alcoholic beer made by [employer] [facility] Utilities Answer Date Recorded In the past 12 months has e Powered by [employer], gas, oil, or water [employer] threatened to shut off services in your [...] Info) Description 12/29/2024 8:40 AM EDT Follow-Up [facility] 4th floor Cardiology Medicine [address] [place] [address] Title Vehicle Service Attendant: Leeann Garcia MD [address] [place] [address] documented as of this encounter Visit Diagnoses Not on filedocumented in this encounter Care Teams Dude Wrangler Relationship Specialty Start Date End Date Molina Dias MD [address] [place] [address] PCP - General Family Medicine 04/05/17 documented as of this encounter
--- OUTSIDE RECORDS SUMMARY | 2024-12-11 18:59 | XMS_ITS | Encounter Summary ---
Author Organization [facility] Address [address] [place] [address] Care Team Providers Care Forest Ranger Name Role Phone Molina Dias MD Primary Care Provider [phone] Encounter Details Date Type Department Care Team (Late st Contact Info) Description 01/22/2018 myChart Message [facility] Family Practice [address] [place] [phone] Molina Dias MD [address] [place] [address] Visit Follow-Up Question Social History Tobacco Use Types Packs/Day Years Used Date Smoking Tobacco: Former Smokeless Tobacco: Never Comments:: Alcohol Use Standard Drinks/Week Comments Yes 1 (1 standard drink = 0.6 oz pur e alcohol) Sex and Gender Information Value Date Recorded [...] Info) Description 12/29/2024 8:40 AM EDT Follow-Up [facility] 4th floor Cardiology Medicine [address] [place] [address] Emergency Spill Response Technician: Leeann Garcia MD [address] [place] [address] documented as of this encounter Visit Diagnoses Not on filedocumented in this encounter Additional Health Concerns Infection Onset Date Last Indicated Resolved Time COVID-19 - Suspected infection 08/05/2020 08/05/2020 08/19/2020 10:33 PM EST documented as of this encounter Care Teams Forest Ranger Relationship Specialty Start Date End Date Molina Dias MD [address] [place] [address] PCP - General Family Medicine 04/05/17 documented as of this encounter
--- OUTSIDE RECORDS SUMMARY | 2024-12-11 18:59 | XMS_ITS | Data Portability ---
Author Organization [facility] [place] Address [address] [place] [address] Care Team Providers Care Delivery Driver Name Role Phone RIVER PAUL Primary Care Provider [id number] RIVER PAUL Referring Provider [phone] Assessment Encounter Date Assessment Date Assessment LastModified by Organization Details LastModified Time 01/27/2019 01/27/2019 rt annually recommended jheld Not available 01/27/2019 10:01:45 03/14/2021 03/14/2021 annual mole exam recommended and phone call or email reminder will be sent for this; self exam and sunblock use reviewed jheld Not available 03/14/2021 14:03:08 03/27/2022 03/27/2022 annual mole exam recommended and phone call or email reminder will be sent for this; self exam and sunblock use reviewed jheld Not available 03/27/2022 09:53:12 04/16/2023 04/16/2023 other than ears' aks, normal exam annual mole exam recommended and phone call or email reminder will be sent for this; self exam and sunblock use reviewed! jheld Not available 04/16/2023 13:52:10 05/29/2024 05/29/2024 rt prn jheld Not available 05/18 11:57:39 Plan of Treatment Reminders Order Date Submit Date Provider Last Modified By Organization Details Last Modified Time Details Appointments None record ed. Lab None record ed. Referral None record ed. Procedures None record ed. Surgeries None record ed. Imaging None record ed. Medication Orders None record ed. Patient TargetsNo targets recorded. Patient Instructions Encounter Date Encounter Id Patient Instructions Last Modified By Organization Details Last Modified Time 01/27/2019 [id number] actinic keratosi s information jheld Not available 01/27/2019 10:01:46 03/14/2021 [id number] seborrheic keratosis information jheld Not available 03/14/2021 14:03:18 03/27/2022 [id number] seborrheic keratosis information jheld Not available 03/27/2022 09:53:12 actinic keratosi s information jheld Not available 03/27/2022 09:53:12 04/16/2023 [id number] seborrheic keratosis information jheld Not available 04/16/2023 13:52:11 actinic keratosi s information jheld Not available 04/16/2023 13:52:11 05/29/2024 [id number] actinic keratosi s information jheld Not available 05/29/2024 11:57:39 Reason for Referral None Reported. Problems Name Problem SNOMED Code Status Onset Date Resolution Date Notes Provider Name and Address Organization Details Recorded Time Actinic keratosis Active Albaro Alford MD [address], [place], [address] , [facility] 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 5 11:42:38 Problem Notes None recorded. Procedures Surgical History Date Name Laterality Status Provider Name and Address Organization Details Recorded Time 05/29/20 24 Premalignant destruction with LN2 completed MD [address], [place], [address], [facility] 05/29/2024 11:57:16 04/16/20 23 Premalignant destruction with LN2 completed MD [address], [place], [address], [facility] 04/16/2023 13:51:31 03/27/20 22 Premalignant destruction with LN2 completed Albaro Alford MD [address], [place], [address], [facility] [place] [facility] 03/27/2022 09:52:56 03/27/20 22 Benign destruction with LN2- completed Albaro Alford MD [address], [place], [address], [facility] 03/27/2022 09:52:37 03/14/20 21 Premalignant destruction with LN2 completed Albaro Alford MD [address], [place], [address], [facility] 03/14/2021 14:02:06 12/14/19 18 Benign destruction with LN2- completed Albaro Alford MD [address], [place], [address], [facility] 12/13/2017 15:15:00 08/03/20 14 Premalignant destruction with LN2 completed Albaro Alford MD [address], [place], [address], [facility] 08/03/2014 09:32:26 Imaging Results None recorded. Procedure Notes None recorded. Medical Equipment None Reported. Allergies No known drug allergies Medications Name Sig Start Date Stop Date Status Note LastModified by Organization Details LastModified Time amoxicillin 500 mg capsule 12/13 completed Not Available Not Available Not Available Qvar 80 mcg/actuati on Metered Aerosol oral inhaler active Not Available Not Available Not Available metoprolol succinate ER 50 mg tablet,exte nded release 24 hr active Not Available Not Available Not Available prednisone 20 mg tablet active Not Available Not Available Not Available phentolamin e mesylate (bulk) powder 04/16 completed Not Available Not Available Not Available amiodarone 400 mg tablet active Not Available Not Available Not Available OneTouch Ultra Test strips active Not Available Not Available Not Available doxycycline monohydrate 100 mg capsule 04/16 completed Not Available Not Available Not Available metformin 1,000 mg tablet active Not Available Not Available Not Available lisinopril 10 mg tablet active Not Available Not Available Not Available Advair Diskus 250 mcg-50 mcg/dose powder for inhalation active Not Available Not Available N ot Available allopurinol 300 mg tablet active Not Available Not Available Not Available lisinopril 5 mg tablet active Not Available Not Available Not Available mupirocin 2 % topical ointment 04/16 completed Not Available Not Available Not Available furosemide 20 mg tablet active Not Available Not Available Not Available metoprolol succinate ER 25 mg tablet,exte nded release 24 hr active Not Available Not Available Not Available lisinopril 40 mg tablet active Not Available Not Available Not Available potassium chloride ER 10 mEq tablet,exte nded release(par t/cryst) active Not Available Not Available Not Available OneTouch Delica Lancets 33 gauge active Not Available Not Available Not Available Repatha SureClick 140 mg/mL subcutaneou s pen injector active Not Available Not Available Not Available metoprolol tartrate 37.5 mg tablet TAKE 1 TABLET BY MOUTH EVERY 12 HOURS active Not Available Not Available No t Available Fluzone High-Dose 1099-7869 (PF) 180 mcg/0.5 mL intramuscul ar syringe 12/13 completed Not Available Not Available Not Available BinaxNOW COVID-19 Ag Self Test kit TAKE DIRECTED 04/16 completed Not Available Not Available Not Available Ozempic 0.25 mg or 0.5 mg (2 mg/3 mL) subcutaneou s pen injector active Not Available Not Available Not Available Vitals None Recorded Social History Question Answer Notes LastModified by Organizat ion Details LastModified Time Tobacco Smoking Status Former Smoker Pattie pickard [place] - [facility] 08/03/2014 09:19:47 Sunblock Used Regularly? Yes jheld Information not available 08/09/2015 What Was The Date Of Your Most Recent Tobacco Screening? 01/27/2019 Information n ot available 04/09/2019 Sex: Unknown Functional Status None recorded. Mental Status None recorded. Family History Nothing Reported. Medical History Condition Response pulmonary Y arthritis Y hypercholesterol Y Past Encounters Encounter ID Performer Location Encounter Start Date Encounter Closed Date Diagnosis/Indication Diagnosis SNOMED-CT Code Diagnosis ICD10 Code Diagnosis Note [id number] [place] [address] [place] [address] 08/12/2012 07:49:20 08/12/2012 10:40:52 Actinic keratosis [id number] [id number] [place] [address] [place] [address] 08/11/2013 13:03:53 08/11/2013 13:19:45 Epidermoid cyst of skin 168027534 Actinic keratosis Senile hyperkeratosis 077335316 [id number] Pattie Christopher [place] [address] [place] [address] 08/03/2014 09:07:48 08/03/2014 09:33:26 Actinic keratosis 875948325 [id number] MD [place] [address] [place] [address] 08/09/2015 11:29:36 08/09/2015 11:43:03 Senile hyperkeratosis 939035107 L82.1 [id number] [place] [address] [place] [address] 12/11/2016 11:15:13 12/11/2016 11:33:45 Multiple benign melanocytic nevi 395463461 D22.9 [id number] MD [place] [address] [place] [address] 12/13/2017 14:47:21 12/13/2017 15:16:33 Actinic keratosis 799373815 L57.0 [id number] MD [place] [address] [place] [address] 01/27/2019 09:52:35 01/27/2019 10:02:48 Actinic keratosis 263199883 L57.0 [id number] MD [place] [address] [place] [address] 03/14/2021 13:43:23 03/14/2021 14:04:07 Angular cheilitis 267549342 K13.0 rx aquaphor or vaseline hs to prevent Senile hyperkeratosis 39 2080632 L82.1 Inflamed s eborrheic keratosis 831935780 L82.0 Multiple b enign melanocytic nevi 350337853 D22.9 [id number] MD [place] [address] [place] [address] 03/27/2022 09:11:22 03/27/2022 09:54:15 Senile hyperkeratosis 348163703 L82.1 Inflamed s eborrheic keratosis 455924488 L82.0 Multiple b enign melanocytic nevi 635603050 D22.5 D22.39 Actinic keratosis 032100 007 L57.0 [id number] MD [place] [address] [place] [address] 04/16/2023 13:39:32 04/16/2023 13:52:55 Senile hyperkeratosis 114213175 L82.1 Inflamed s eborrheic keratosis 553654438 L82.0 Actinic keratosis 637972 007 L57.0 Multiple b enign melanocytic nevi 925774252 D22.5 D22.39 [id number] MD [place] [address] [address] [place] [address] 05/29/2024 11:42:34 05/29/2024 12:10:33 Actinic keratosis 683746108 L57.0 Multiple b enign melanocytic nevi 302598994 D22.5 D22.39 Senile hyperkeratosis 39 5674447 L82.1 Inflamed s eborrheic keratosis 712254304 L82.0 Health Concerns Section Related Observation LastModified by Organization Detai ls LastModified Time None Recorded Concern Status LastModified by Organization Details LastModified Time None Recorded Advance Directives Directive None Recorded Payers Encounter Date Sequence Insurance Name Policy Number Policy Valentine Covered Member ID Valentine Member ID Guarantor Name 01/27/2019 1 [place] [employer] Guera Barkley [id number] Guera Barkley 01/27/2019 2 [facility] - COMPLEMENT PLAN - MEDICARE SUPPLEMENT (O) [id number] Guera Barkley [id number] Guera Barkley 03/14/2021 1 [place] [employer] Guera Barkley [id number] Guera Barkley 03/14/2021 2 [facility] - COMPLEMENT PLAN - MEDICARE SUPPLEMENT (HMO) [id number] Jorma Rubia [id number] Jorma Rubia 03/27/2022 1 [place] [employer] Jorma Rubia [id number] Jorma Rubia 03/27/2022 2 [facility] - COMPLEMENT PLAN - MEDICARE SUPPLEMENT (HMO) [id number] Jorma Rubia [id number] Jorma Rubia 04/16/2023 1 [place] [employer] Jorma Rubia [id number] Jorma Rubia 04/16/2023 2 [facility] (MEDICARE SUPPLEMENT) Jorma Rubia [id number] Jorma Rubia 05/29/2024 1 [place] [employer] Jorma Rubia [id number] Jorma Rubia 05/29/2024 2 [facility] (MEDICARE SUPPLEMENT) Jorma Rubia [id number] Jorma Rubia Notes Date Note Type Note Provider Name and Address Organization Details Recorded Time 01/27/2019 text/html only c/o is spots left sideburn Albaro Alford MD [address], [place], [address], [facility] 01/27/2019 10:02:26 03/14/2021 text/html lesion new left lower leg and full exam planned with neg ros Albaro Alford MD [address], [place], [address], [facility] 03/14/2021 14:03:49 03/27/2022 text/html c.o chest growths bothering and scaly left cheek spot Albaro Alford MD [address], [place], [address], [facility] 03/27/2022 09:53:56 04/16/2023 text/html full annual skin exam and noting rt ear problem Albaro Alford MD [address], [place], [address], [place] [facility] 04/16/2023 13:52:39 05/29/2024 text/html fbse and recent heart surgery doing fine Albaro Alford MD [address], [place], [address], [facility] [place] [facility] 05/29/2024 11:58:09
--- OUTSIDE RECORDS SUMMARY | 2024-12-11 19:00 | XMS_ITS | Clinical Summary ---
Author Organization [facility] Address [address] [place] [address] Care Team Providers Care Golf Instructor Name Role Phone Molina Dias MD Primary Care Provider [phone] Allergies No known active allergies Medications cholecalciferol (VITAMIN D3) 2,000 unit tablet Take 2,000 Units by mouth once a day. 08/15/20 11 Active albuterol (PROAIR HFA,VENTOLIN HFA) 90 mcg inhalerIndications:M oderate persistent asthma without complication (HCC) Inhale 2 puffs (180 mcg total) by mouth every 4 hours as needed for wheezing. Use with spacer. 1 Inhaler 11 01/24/20 18 Active glucos sul 2KCl/msm/chond/C/Mn (GLUCOSAMINE CHONDROITIN ORAL) Take 1 tablet by mouth once a day. Active Compression Stockings, Knee HighIndications:Phle bitis and thrombophlebitis 20-30 mmHg by Other route once a day. Wear during the day, every day, as directed. 1 pair 3 08/10/20 21 Active Additional Information Patient not taking.Reported on 10/21/2024 Advair Diskus 250-50 mcg/dose inhalerIndications:M oderate persistent asthma without complication (HCC) Inhale 1 puff by mouth 2 times a day. Rinse mouth with water after use. Do not swallow. 180 each 03/24/20 22 Active allopurinoL (ZYLOPRIM) 300 mg tabletIndications:Le ad-induced gout of foot, unspecified chronicity, unspecified laterality, subsequent encounter TAKE ONE TABLET BY MOUTH EVERY DAY 45 tablet 5 08/13/20 23 Active Additional Information Patient taking differently: 150 mgoral3 times weekly, Reported on 10/21/2024 aspirin tablet 325 mg Take 1 tablet (325 mg total) by mouth once a day. 30 tablet 2 10/28/19 24 Active Additional Information Patient not taking.Reported on 10/21/2024 multivitamin tablet Take 1 tablet by mouth once a day for 9 doses. 9 tablet 10/28/19 24 Active vit B complex 100 no.2/herbs (VITAMIN B COMPLEX 100 2-HERBS ORAL) Active metFORMIN (GLUCOPHAGE) 1,000 mg tabletIndications:Di abetes mellitus type 2 in nonobese (HCC) TAKE ONE TABLET BY MOUTH TWICE A DAY WITH MEALS 180 tablet 3 02/05/20 24 Active metoprolol succinate XL (TOPROL XL) 25 mg tablet Take 1 tablet (25 mg total) by mouth once a day. 90 tablet 3 05/16/20 24 025 Active Additional Information Patient taking differently:25 mg oral Daily,Taking 12.5 by mouth once a day, Reported on 10/21/2024 blood glucose diagnostic test stripIndications:Typ e 2 diabetes mellitus without complication, without long-term current use of insulin ([facility]) Use to test 2 times daily. Diabetes E 11.6 100 strip 2 06/20/20 24 Active lancets Use to test 2 times daily. 200 each 3 06/23/20 24 025 Active semaglutide (Ozempic) 0.25 mg or 0.5 mg (2 mg/3 mL) pen injector Inject 0.5 mg under the skin per week. 3 mL 3 08/29/20 24 025 Active Repatha SureClick 140 mg/mL pen injector INJECT CONTECTS OF ONE PEN 1 ML (140 MG) UNDER THE SKIN EVERY 14 DAYS 6 mL 3 09/16/20 24 Active FLAXSEED OIL ORAL Take by mouth. Active lisinopriL (PRINIVIL,ZESTRIL) 2.5 mg tablet Take 1 tablet (2.5 mg total) by mouth once a day. 90 tablet 3 10/21/19 25 Active Active Problems Problem Noted Date Diagnosed Date Iron deficiency anemia 10/21/2024 Assessment & Plan (10/21/2024 11:58 AM EST): Is been without symptoms for some time. Will check H&H as well as iron studies. Dysuria 10/21/2024 Assessment & Plan (10/21/2024 11:58 AM EST): Based upon his history of previous prostate cancer obtain PSA as well as UA and [employer]ET[employer]. Preoperative clearance 10/21/2024 Assessment & Plan (10/21/2024 12:02 PM EST): He is extremely low risk for this procedure. He is cleared Postoperative atrial fibrillation 10/26/2023 Assessment & Plan (10/21/2024 11:58 AM EST): Clinically negative. Continue metoprolol as well as lisinopril. Assessment & Plan (10/26/2023 9:54 PM EST): 10/26 new onset of JELLY. Given Amiodarone bolus x 2. Converted to NSR. Started Amiodarone 400 mg po q8hr. 2nd episode of afib _> Metoprolol 5 mg IV x 1 @ 1120 (afib 140's). Converted to NSR. S/P CABG x 2 10/22/2023 Assessment & Plan (10/23/2023 8:43 AM EST): S/P CABG - ASA - subcutaneous heparin - beta-augusto Assessment & Plan (10/26/2023 4:50 AM EST): CABG x 2 (WILKES to LAD, SVG to OM) by Dr. Zeus RIBERA, will resume home dose Repatha on discharge Lopressor added; uptitrate as needed ASHD (arteriosclerotic heart disease) 10/08/2023 Assessment & Plan (04/02/2024 3:16 PM EDT): All symptoms resolved following coronary artery bypass surgery. He did not do cardiac rehab afterwards and I wonder if he should. Will discuss with Dr. Mosquera Assessment & Plan (10/26/2023 4:38 AM EST): Cardiac cath on 10/19/23 revealed severe LM disease (80%) and LAD (80%) disease. 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 Recent exercise stress test showing abnormal ECG suggestive of ischemia, and Cagle Treadmill Score is -9, which indicates high risk. Left heart catheterization and coronary angiography completed 10/19/23 via left radial wrist showing severe left main disease. Cardiac surgery was consulted for CABG evaluation for revascularization. 10/20/2023 Patient hemodynamically stable and in no acute distress. He continues to deny chest pain or shortness of breath. Left wrist is without oozing or hematoma. Vitals are stable and labs are unremarkable. Patient reports that his has tested positive for COVID today. He denies viral like symptoms with the exception of increased phlegm which he reports has been presents for 3 months at this point. -Carotid Duplex scan completed in September 2023 with mild atherosclerotic disease bilaterally -TTE and lower extremity vein mapping are completed with final reads pending. -CXR is largely unremarkable -CT Chest noncon with moderate aortic valve calcifications and severe coronary calcifications -UA unremarkable 10/21/2023 Remains hemodynamically stable and in no acute distress. Denies chest pain or shortness of breath 10/22: No acute overnight events. Patient denies chest pain, shortness of breath, lightheadedness or dizziness. Patient ambulating independently in the gerardo. Plan for CABG today. Plan: -NPO today for CABG today -Continue aspirin 81mg daily, toprol XL, nitroglycerin prn -Intolerant to statins, holding Repatha inpatient Nonrheumatic aortic valve stenosis 10/08/2023 Assessment & Plan (04/02/2024 3:17 PM EDT): His last echo shows his ejection fraction is good but this can also contribute or at least is in the differential of his fatigue. Will discuss with Dr. Mosquera Assessment & Plan (10/24/2023 10:29 AM EST): Moderate on preadmission echo. Assessment & Plan (10/20/2023 2:41 PM EST): TTE completed this admission with possible moderate (official results pending). Denies syncope, pre-syncope, lightheadedness, palpitations. Known HERNADEZ which may be attributable to obstructive CAD, asthma. -Continue metoprolol XL 25mg daily, and aspirin 81mg daily -Use nitrates with caution Left carotid bruit 09/21/2023 Assessment & Plan (10/21/2023 3:13 PM EST): Recent carotid duplex shows 1-29% stenosis bilaterally. HERNADEZ (dyspnea on exertion) 09/18/2023 Assessment & Plan (09/18/2023 2:16 PM EST): DDX: CV vs deconditioning; will check hsCRP. Will consider ETT patient should use his Advair twice a day and albuterol before exercise and let me know if it makes any difference. His peak flow today was 02/08/1950. Trigger little finger of right hand 02/15/2022 Assessment & Plan (02/15/2022 3:30 PM EDT): He is referred back to Dr. Wells and pushpa. Actinic keratosis 01/24/2022 Senile hyperkeratosis 01/24/2022 Sebaceous cyst 04/04/2021 Assessment & Plan (08/03/2021 4:22 PM EST): This is regressed significantly. Should recur would concur agree with excisional biopsy. Assessment & Plan (07/28/2021 12:13 PM EST): Guera was seen and examined by myself and Dr. Melo Hernandez. At this time his cyst seems to have resolved. He can follow-up with the general surgery team on an as-needed basis. We encouraged him and his spouse to continue to track his symptoms. A picture was taken of the cyst today, which can be found in media. Today there was no discernible cyst sac, fluctuance, fluid. He was agreeable to this plan and had no additional questions concerns at the close the visit. It was a pleasure participating in his care. Other fatigue 01/12/2021 Assessment & Plan (04/02/2024 3:18 PM EDT): Differential includes medication induced in particular metformin versus metoprolol versus his aortic stenosis. Assessment & Plan (01/12/2021 2:23 PM EDT): It is unclear to me if this is secondary to his spinal stenosis his diabetes is deconditioning etc. We will change his labs today. He currently denies this being cardiac we will still obtain hs-CRP. Encounter for Medicare annual wellness exam 01/16 Assessment & Plan (02/27/2023 2:31 PM EDT): Will get COVID and flu this fall; keep active. Assessment & Plan (02/15/2022 3:28 PM EDT): He will agrees to update his healthcare proxy and advanced directive. All other issues are up-to-date. He is seeing the eye doctor, as a mail is current. He had his colonoscopy just 2 weeks ago. Assessment & Plan (01/12/2021 2:20 PM EDT): He has had his Covid vaccine. His exercise is limited likely secondary to his spinal stenosis. Will obtain lipid panel today. Otherwise he is up-to-date. See scanned Medicare wellness visit questionnaire Assessment & Plan (02/11/2020 1:57 PM EDT): Overall doing well; add 500-1000 mg of Mg Oxide after dinner for leg cramps. Exercise 5 days a week, even a walk is sufficient. F/U after travels Low back pain 07/16/2018 Assessment & Plan (07/08/2024 5:14 PM EDT): Patient has significant spinal stenosis as well as disc disease. As things have worsened I recommend an MRI of his back and follow-up discussion with neurosurgery he agrees to this plan Assessment & Plan (07/16/2018 2:16 PM EDT): Improving but still persists after 2 months in pateint with Prostate cancer. Will obtain labs;had Xray from [facility]. Review Exercises and PT. If not fully resolved in the next few weeks will obtain further diagnostic workup in light of his prostate cancer. Status post left hip replacement 01/23/2018 Assessment & Plan (07/08/2024 5:15 PM EDT): I am concerned about his difficulty bearing weight on the left hip. Yes this may be referred from the back but I am worried it may be related to his prosthesis will obtain an x-ray. Assessment & Plan (04/02/2024 3:19 PM EDT): He is moderately to severely deconditioned. VMO on the left is very weak and he has poor internal and external hip rotation. His left gastrocnemius is also quite weak. He is agrees to physical therapy. He will be traveling in the next few weeks so I give him a center of series of home exercises including yoga ball squats and heel lifts using a chair for support. Will recheck in 3 months Assessment & Plan (02/27/2023 2:30 PM EDT): Feels stable since initial surgery 2007. Goes to [facility]. Rec PT. Not interested now Assessment & Plan (04/06/2020 12:09 PM EDT): I think this is primarily hip and not due to his spinal stenosis. Amy testing implying hip rather than low back. He had this replaced at [facility] and I recommend he contact the orthopedic group there again as last time he was seen by the PA given a steroid injection that did not cause any benefit. Assessment & Plan (07/09/2019 6:13 PM EDT): He used to be quite active on his hip and is gotten out of shape. His symptoms do not improve will recommend more aggressive physical therapy. Assessment & Plan (01/23/2018 4:42 PM EDT): Per surgery. He appears to be not full activity for 12 weeks post surgery. That is with the surgeon recommended. Surgeon also requested that he go on antibiotics anytime he has dental work. Neuropathy 01/08/2018 Assessment & Plan (02/27/2023 2:29 PM EDT): Persists; work up negative Pt Ed re falls Assessment & Plan (08/22/2022 4:13 PM EST): Appears clinically stable. We will continue to follow. Extensive work-up done in the past. Assessment & Plan (01/12/2021 2:22 PM EDT): This is now bilateral and likely secondary to spinal stenosis. He refuses to go undergo EMG testing. We discussed him considering seeing surgery and having his back addressed. He will consider Assessment & Plan (01/08/2018 5:56 PM EDT): It is unclear the cause of this. He states he had a 2 episodes after giving 2 pints of blood of dizziness. He also is concerned because his resting serum hemoglobin is always at 15 or higher. Will work this up once his hip is resolved. Peripheral neuropathy 01/11/2016 Assessment & Plan (02/15/2022 3:29 PM EDT): We will recheck B12 TSH and CBC. Varicose veins with inflammation 11/23/2014 Assessment & Plan (02/15/2022 3:31 PM EDT): He is doing well but he does not wear the compression hose. We talked about zipper based compression hose and he is very interested we review the web on this. Assessment & Plan (08/03/2021 4:23 PM EST): As above. Compression hose on the morning off at night. And obtain a ankle- brachial index as well as see vascular for both arterial and venous disease Phlebitis 10/14/2014 Type 2 diabetes mellitus 02/09/2012 Assessment & Plan (10/21/2024 11:59 AM EST): Continue semaglutide and metformin. Will continue to monitor to her weight and A1c. Assessment & Plan (07/08/2024 5:16 PM EDT): Currently on semaglutide injectable 0.5 once a week and metformin at 1000 mg twice daily. I would like to consider getting slightly more aggressive with the semaglutide but I would like to get his back and hip issues resolved first. His weight is stabilized. Assessment & Plan (04/02/2024 3:20 PM EDT): He has done extremely well with his somatically tied. He states he has not been careful with his diet but he does find that he is not snacking as much as before. Assuming A1c is looking low would consider getting rid of metformin. Will discuss after labs come back. Assessment & Plan (10/24/2023 10:22 AM EST): Baseline hemoglobin A1c 7.2, preadmission Ozempic and metformin. Current glycemic control with subcutaneous insulin. Metformin restarted. Assessment & Plan (10/22/2023 10:58 AM EST): Patient with history of type 2 diabetes controlled on metformin and ozempic at home. Lab Results Component Value Date HGBA1C 7.2 (H) 10/19/2023 HGBA1C 6.8 (H) 09/18/2023 HGBA1C 6.4 (H) 02/27/2023 HGBA1C 8.6 (H) 08/22/2022 HGBA1C 7.1 (H) 02/15/2022 -Hold home medications pending CABG -Blood sugars AC HS, LDSS insulin with meals -NPO blood sugars Q6H and SS insulin Assessment & Plan (09/18/2023 2:17 PM EST): Will check A1c today doing extremely well on metformin 1000 mg a day as well as semaglutide injection. Assessment & Plan (02/27/2023 2:31 PM EDT): Will check A1c and labs; been on Ozempic x 6 months. Assessment & Plan (08/22/2022 4:15 PM EST): His fasting sugars in the morning continue to be quite high. He is currently on metformin 1000 twice daily. Neck step ideally for him would to be on a GLP-1 agonist once a week. He is in agreement with this. Will obtain labs today and then initiate her prescription Assessment & Plan (02/15/2022 3:31 PM EDT): Currently on metformin 1000 mg twice daily. Will check B12 level. Check A1c today. MAL is due in August. Urged to try to get exercise 5 days a week. Because of his left hip pain he is reluctant to walk on a regular basis. Assessment & Plan (08/03/2021 4:23 PM EST): His dietary noncompliance has been a significant factor. Now that he is doing well to maintain his diet I am hesitant to add another agent. Plan be to recheck his A1c after the first of the year. If it does not come down dramatically or if he starts getting postprandial sugars over 200 I make aware that we must add a second medication. He agrees Assessment & Plan (01/12/2021 2:24 PM EDT): He is poorly compliant with his diet. This is showing up in both his blood sugar as well as his flares of gout. We will check A1c today as he is currently just on Metformin. I asked him to please start drinking 1 teaspoon of psyllium fiber before meals. He feels this is an easy thing and he is willing to do it Assessment & Plan (07/09/2020 10:58 AM EDT): Continue weight loss, add exercise; band ex given, add inulin fiber before meals; Double Doods labs 10/07 Assessment & Plan (04/06/2020 12:10 PM EDT): He is started to see that his A1c went from 6.5 to up to over 8. We discussed adding another agent and he would like to continue to try to change his diet. He states he has been eating Niuean and ice cream every day for the last few months. He knows he will eat less bread he stopped buying any sweets and he will start exercising more if the hip improves. We agreed that we will recheck this in 3 months and if things are not going in the right direction we will add a second agent Assessment & Plan (07/09/2019 6:14 PM EDT): Currently on metformin 1000 mg a day. Urged to stop eating frozen cinnamon buns get back on his diet get back to exercising. Will check labs prior to next visit Assessment & Plan (01/28/2019 2:19 PM EDT): Will continue on metformin and add psyllium fiber up to 3 tablespoons a day. Increase water was slightly dehydrated on recent labs. Continue with exercise regimen. Assessment & Plan (08/28/2018 5:19 PM EST): We will continue metformin 1000 twice daily push fluids recheck A1c after the first of the year. We talked about limiting carbohydrates exercise etc. Assessment & Plan (07/16/2018 2:18 PM EDT): Will continue Metformin; revisited diet changes, etc. between his vacation and allowing him and his lack of exercise because of his back pain we discuss his reaching a more aggressive approach towards weight loss. Recheck A1c in 6 weeks Assessment & Plan (01/23/2018 4:43 PM EDT): He was unable to get on the scale today but is been started back on his metformin. Will recheck A1c in 3-4 months. Continue with weight loss Assessment & Plan (01/08/2018 5:56 PM EDT): He is doing well on his metformin. Will recheck labs. I am most concerned about his weight gain and his lack of exercise. Assessment & Plan (01/02/2018 12:28 PM EDT): The diabetes control seems satisfactory based on the hemoglobin A1c reading, but since he has donated blood twice in the past month (which can falsely lower the A1c) I have asked him to test the sugars a few times each week and let me know the average. If the average is in the expected range of 130 to 150 mg, he should continue the same dose of metformin. If the average is significantly higher, we will need to look into this. Since his diabetes control is good, I have not scheduled a follow up visit, and he can follow up with Dr. Dias for this. Asthma 02/07/2011 Assessment & Plan (10/21/2024 11:58 AM EST): I would like him to use his Advair at least once a day in the week prior to his surgery and twice a day when he gets ill. Patient education about this going forward. Assessment & Plan (07/08/2024 5:13 PM EDT): Symptoms are clinically stable. Follow-up TATIANA should he have an exacerbation. Assessment & Plan (04/02/2024 3:16 PM EDT): Will place him on prednisone 40 a day for the next 7 days. Will have him use his combination inhaler twice a day and follow his symptoms. 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 Interchanged to Advair to Symbicort during postoperative admission. Assessment & Plan (10/19/2023 3:46 PM EST): Reports some dyspnea with exertion, able to maintain >95% oxygen saturation on room air. - continue home albuterol PRN - continue home symbicort - monitor O2, titrate supplemental oxygen to maintain >92% Assessment & Plan (09/18/2023 2:16 PM EST): Minded to use his Advair twice a day every day and as needed albuterol. Assessment & Plan (02/27/2023 2:44 PM EDT): Continue Advair inhaler and as needed albuterol. Reminded to get vaccines this fall. Assessment & Plan (02/15/2022 3:27 PM EDT): SymptomsHe will continue using the Advair. He is again reviewed that if he gets a respiratory infection or some cough or dyspnea or wheezing he is to use his albuterol 2 puffs every 4 hours as needed. If symptoms are severe he should let me know sooner for consideration of steroid treatment Assessment & Plan (01/12/2021 2:20 PM EDT): Urged to use his albuterol prior to physical activity. Does admit to using Advair but just once a day Assessment & Plan (07/09/2020 10:58 AM EDT): Urged to use advair BID, and prn albuterol. F/U if worsens Assessment & Plan (12/05/2019 2:10 PM EDT): Will DC Qvar and switch to Advair 250/50 1 puff bid and use Albuterol PRN Assessment & Plan (10/08/2019 1:40 PM EST): He continues to use his inhalers poorly. He is instructed on how to do so. We will stop the Qvar and have him try fluticasone salmeterol as air duo 1 puff twice a day increase fluids watch for fevers etc. Follow-up if symptoms worsen Assessment & Plan (01/23/2018 4:40 PM EDT): Will increase his Qvar to 2 puffs twice daily and have him continue use the as needed albuterol. Symptoms worsen he will let me know for consideration of short course of steroids. Assessment & Plan (01/08/2018 5:55 PM EDT): Has a scant end inspiratory wheeze on the left. Not severe not disturbing him he is unaware of it. Will have him continue using the Qvar 2 puffs twice a day and as needed Pro Air. This may be secondary to reflux I am unsure as a symptoms seem to be worse when he supine or at least maybe he is just more aware of them. Will workup after we redressed resolving his dislocating hip Spinal stenosis 11/23/2009 Assessment & Plan (10/21/2024 11:59 AM EST): Agree with surgery. Dr. Robb's preop needs have been met. Assessment & Plan (07/08/2024 5:14 PM EDT): As above will get a repeat MRI of his spine his previous ones over 2 years old. Assessment & Plan (02/27/2023 2:30 PM EDT): He is reluctant to consider surgery at this time; will follow. I think he might benefit. Assessment & Plan (08/22/2022 4:19 PM EST): Quite disabled but currently has no foot drop. After a long discussion he agrees to see orthopedic surgery and consider operative results resolution. [facility]. Urged him to please do no heavy lifting no raking no other activity except for walking until we get this addressed and we discussed the implications of him having serious nerve damage. Assessment & Plan (08/03/2021 4:22 PM EST): He now feels it may be time to consider surgery. We will repeat the MRI and pending his agreement will refer either back to [facility] or out to [place] Assessment & Plan (01/12/2021 2:28 PM EDT): I suspect this is the source of his fatigue. We discussed further work-up and possible surgery but he is not interested in hearing about it today. Will review after I get his lab results Assessment & Plan (02/11/2020 1:51 PM EDT): When he returns from road trip in 5 days will contact Ortho for revaluation. Assessment & Plan (10/08/2019 1:41 PM EST): Going to [facility] later this week. Overall feels fair and is ready to have something done about this. Assessment & Plan (07/09/2019 6:13 PM EDT): This is concerning to me because of the cramps. The bilateral they are worse at night and they get up when he stands up and leans forward. As this seems to be significant will obtain MRI of his spine and discuss next steps when we get results. Assessment & Plan (08/28/2018 5:19 PM EST): Symptoms much improved following his hip surgery. He is pleased that he has the symptoms resolved and will continue to try to keep active. Assessment & Plan (01/08/2018 5:55 PM EDT): His back symptoms are stable. I do advise him that once his hip is resolving need to have him lose some weight and begin exercising again. If his symptoms persist will again reconsider neurosurgery Prostate cancer 11/23/2009 Assessment & Plan (10/21/2024 11:59 AM EST): He questions whether he needs a follow-up with radiation oncology. Messages sent to determine if follow-up is necessary. PSA pending Assessment & Plan (07/08/2024 5:14 PM EDT): PSA from earlier this year was still less than 0.04. Will continue to track at least on a yearly basis. Assessment & Plan (04/02/2024 3:18 PM EDT): He has not followed up with Dr. Walker in this. Will check PSA today. Assessment & Plan (10/21/2023 3:24 PM EST): S/p prostatectomy. Assessment & Plan (09/18/2023 2:16 PM EST): Is seeing urologist next month will check PSA today. Assessment & Plan (02/27/2023 2:30 PM EDT): Saw XRT; PSA continues to go down; will follow Assessment & Plan (08/22/2022 4:14 PM EST): He is scheduled to see Dr. Walker after the first of the year. On his request obtain PSA. Assessment & Plan (02/15/2022 3:30 PM EDT): Per urology and radiation oncology appears stable. Assessment & Plan (08/03/2021 4:21 PM EST): We will recheck PSA after the first of the year just prior to his follow-up with radiation oncology Dr. Walker Assessment & Plan (01/12/2021 2:23 PM EDT): Completed his radiation therapy following its recurrence. Will check PSA and free today Assessment & Plan (07/09/2020 10:51 AM EDT): XRT starting soon x 8 weeks Assessment & Plan (04/06/2020 12:09 PM EDT): We discussed the various treatment options and he agrees to both hormonal and radiation treatment. I will attempt to have him seen by [facility] urology and have him follow-up with Dr. Walker for radiation therapy. Assessment & Plan (02/11/2020 1:48 PM EDT): Awaiting PSA from last week Still [place] [facility] [place] Will follow up [facility] about appointment. Assessment & Plan (12/05/2019 2:10 PM EDT): Agree with seeing Rad Onc in [place] and getting second opinion in [facility]. Will set up. Assessment & Plan (10/08/2019 1:41 PM EST): Saw the urologist who is going to order a PET scan and watch for PSA going over 1. For right now he feels well and is not concerned Assessment & Plan (07/09/2019 6:12 PM EDT): Merari at length his PSA that has doubled in the last year. Also his elevated free PSA I explained what this means and how it somewhat reassuring. He would like to go back to [place] to see urologist there to discuss next steps when he returns from [place] in a few weeks and I agree with this plan. Assessment & Plan (01/28/2019 2:19 PM EDT): His PSA has been stable at less than 0.1 for some time but over the last 1 slowly up to 0.3. We discussed the implications of this and treatment options. Last year he saw radiation oncologist who offered radiation therapy but did not recommend it. Additionally he saw both Dr. Arias and Dr. Coleman Carreon to discuss his options. He is leaving on vacation to be back sometime in June. He would like a repeat assessment at that time we will schedule follow-up with with Dr. Arias to consider his options. He and his are present for this discussion and agree with this plan Assessment & Plan (08/28/2018 5:19 PM EST): We discussed this at great length as well as his visit to his urologist and the second opinion by Dr. Coleman Carreon. Her current plan is that he will repeat PSA and free PSA over the first of the year. If there is a significant rise consider imaging and more aggressive care. Otherwise we will track it every 4 months. Assessment & Plan (07/16/2018 2:16 PM EDT): To recap his PSA went from 0.1-0.2 and then over the last 6 months from 0.2- 0.24. We discussed a variety of options our plan is to have him to get a second opinion from urologist in [place] and repeat his PSA in 6 weeks. Assessment & Plan (01/23/2018 4:42 PM EDT): His PSA has gone from 0.1-0.2. He wants to wait 6 months and recheck it again. I suggest that this is not a reyes idea based upon the fact that it has essentially doubled. We will recheck it in 1 month before he goes away for the rest of the summer. He is to follow-up with Dr. Rosario Assessment & Plan (01/08/2018 5:56 PM EDT): He denies symptoms. He is seeing urologist and request is a PSA today which I will obtain. Allergic rhinitis 11/15/2009 Assessment & Plan (10/08/2019 1:39 PM EST): Sounds like that his ENT has found recurrent polyps and placed him on a 60 mg sliding prednisone dosage. We will continue to follow Assessment & Plan (07/09/2019 6:11 PM EDT): We will have him go back to trying budesonide nasal spray twice a day. If symptoms persist he is to return to ENT for reevaluation of nasal polyps. Osteoarthritis 11/15/2009 Gout 11/15/2009 Assessment & Plan (04/02/2024 3:17 PM EDT): Currently on allopurinol 300 mg 1/2 pill 3 times a week. Will check uric acid level BUN/creatinine. Assessment & Plan (10/24/2023 5:48 PM EST): Holding preadmission allopurinol per patient request. Assessment & Plan (09/18/2023 2:16 PM EST): Doing well on allopurinol 300 mg daily. Will check uric acid level today. Assessment & Plan (02/27/2023 2:28 PM EDT): Will recheck BUN Creat, and Uric Acid Assessment & Plan (08/22/2022 4:13 PM EST): Currently on allopurinol 300 mg once a day. We will recheck uric acid Assessment & Plan (02/15/2022 3:29 PM EDT): Clinically very stable using allopurinol twice a week. We will check uric acid level today. Assessment & Plan (01/12/2021 2:22 PM EDT): He states he had a few flares while he was in [place]. Will check uric acid today Assessment & Plan (10/08/2019 1:40 PM EST): Currently just using the allopurinol twice to 3 times a week. We will continue Assessment & Plan (07/09/2019 6:12 PM EDT): No flare. We will continue allopurinol 150 every day. Increase hydration. Assessment & Plan (08/28/2018 5:18 PM EST): No recent flare. His right great toe symptoms are unlikely to be gout more associated with his sciatica. Continue using the every other day or every third day allopurinol. Keep hydration up. He eats a vegetarian diet. Assessment & Plan (07/16/2018 2:15 PM EDT): Continue allopurinol 300/day No recent flare. Essential hypertension 11/15/2009 Assessment & Plan (10/21/2024 11:04 AM EST): Will continue Lisinopril at 2.5 and 12.5 of Toprol; after surgery, can do trial of weaning off toprol. Follow up thru [facility] Assessment & Plan (07/08/2024 5:14 PM EDT): I am worried with his orthostatic findings that his blood pressure is getting too low pair. A message was sent to his cardiology team and they concur and agree did stop the lisinopril and will continue the metoprolol 12.5 once a day. They will contact him to make him aware. Assessment & Plan (04/02/2024 3:17 PM EDT): He is currently on lisinopril 10 mg a day metoprolol succinate XL 50 once a day with occasional blood pressures running low. He is also got a slow pulse. Once he is completed his course of prednisone I would like him to try taking a half of the metoprolol a day and see if his energy and mood improved. 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 Currently Metoprolol 25 mg po q8hr and lisinopril 10 mg daily. Assessment & Plan (10/19/2023 3:47 PM EST): Stable, normotensive at this time. - continue toprol XL 25mg - hold home lisinopril pending CABG Assessment & Plan (02/15/2022 3:28 PM EDT): In light of his presyncopal symptoms we will have him switch to lisinopril 20 mg once a day and track his blood pressure over the next 2 weeks. He will send me a [employer] message while he travels through [place] to update me On how his blood pressure is running. Assessment & Plan (01/12/2021 2:21 PM EDT): Currently taking lisinopril 20 mg alternating with 40 mg a day. When he is tracking it at home sometimes as high sometimes as low. 11 continue to track it increase interest in aerobic exercise and watching for his continued dietary indiscretions Assessment & Plan (10/08/2019 1:40 PM EST): Doing well on lisinopril 40 mg a day. He promises me he will get to exercising after his back surgery is resolved Assessment & Plan (07/09/2019 6:11 PM EDT): Has been a very stressful time. He has not watched his diet and has not been exercising. I urged him to please get back to exercising now that he is going away increase fluids continue lisinopril. Will check labs. Assessment & Plan (08/28/2018 5:18 PM EST): Continue lisinopril 40 a day. Increase fluid intake. Assessment & Plan (07/16/2018 1:51 PM EDT): Now off all meds and normotensive; will follow; counseled on anerobic exercise Assessment & Plan (01/23/2018 4:41 PM EDT): The story remains unclear and complex. 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 His states the artist and repertoire manager saw him during the hospitalization and have been responsible for his medications. Based upon this finding I will have him continue the hydralazine skeletally 6 weeks post surgery. And then slowly wean him off the hydralazine. UA today demonstrates no blood negative glucose negative bilirubin negative ketones specific gravity 1015 no blood pH is six-point trace protein otherwise negative Hyperlipidemia 11/15/2009 Assessment & Plan (10/23/2023 4:57 PM EST): History of statin intolerance. Was on Repatha pre-operatively - resume Repatha upon discharge Assessment & Plan (10/19/2023 4:04 PM EST): Images from the original note were not included. Chronic. Previously unable to tolerate statins and has been taking repatha injection every 14 days. Goal LDL < 70. - hold repatha pending CABG Latest Ref Rng & Units 09/18/2023 2:30 PM 02/27/2023 2:35 PM 08/22/2022 4:16 PM Lipids Cholesterol <200 mg/dL 182 204 209 Triglycerides <150 mg/dL 190 432 296 Cholesterol, HDL > OR = 40 mg/dL 34 37 36 LDL-Cholesterol mg/dL (calc) 117 See Comments 131 Assessment & Plan (02/27/2023 2:28 PM EDT): Will check lipids and LFT today Assessment & Plan (02/15/2022 3:29 PM EDT): He had been on statins in the past and then stopped them. We will recheck lipids in light of his type 2 diabetes diagnosis. Assessment & Plan (08/03/2021 4:21 PM EST): Could not tolerate statins and has been on on resins in the past. We discussed that he may be eligible for some newer agents but he would like to continue to work on his own to improve his A1c control through diet and exercise and continued Metformin. We will recheck lipids in 2 months. Assessment & Plan (01/28/2019 2:18 PM EDT): Has been focusing on his diet will recheck lipid panel in the fall Assessment & Plan (01/08/2018 5:55 PM EDT): We will recheck lipid panel. Resolved Problems Problem Noted Date Diagnosed Date Resolved Date Fluid overload 10/23/2023 04/02/2024 Assessment & Plan (10/24/2023 10:30 AM EST): Continue Lasix 40 mg p.o. twice daily. Assessment & Plan (10/23/2023 8:44 AM EST): Volume overload after third spacing. - Diurese - 1 L over 24 hours. - Follow daily BUN, Creatinine, Na, K, Mg. Systolic murmur at cardiac apex 09/21/2023 04/02/2024 Pre-syncope 02/15/2022 04/02/2024 Assessment & Plan (02/15/2022 3:30 PM EDT): Differential includes hypotension from excess lisinopril versus primary cardiac versus intra-abdominal/nonalcoholic fatty liver disease. We will see how he does on the lower dose of lisinopril and check labs including TSH B12 etc. If negative will begin imaging studies including an echo and abdominal ultrasound. Peripheral vascular disease 08/03/2021 10/24/2023 Assessment & Plan (08/03/2021 4:21 PM EST): Both arterial and venous. Will obtain ankle-brachial index refer to vascular surgery. For his venous disease I encouraged him to wear compression stockings on the morning off at night. I am concerned about the worsening of his peripheral neuropathy and his very slow capillary refill. Acute pain of left shoulder 07/09/2020 01/12/2021 Assessment & Plan (07/09/2020 10:48 AM EDT): Refuses PT and steroid injection; exercises given. Will try Muscle cramp 08/28/2018 04/06/2020 Assessment & Plan (08/28/2018 5:20 PM EST): He has had these symptoms since childhood. He describes if he uses his hands too much they will cramp up if he uses his lower body too much she will get cramps. He is happy with this he does not seem to be bothered by it increase fluids and will continue to follow Encounters Date Type Department Care Team Description 12/11/[address] [facility] [address] [place] [phone] Molina Dias MD 11/14/2024 Telephone [facility] 4th floor Cardiology Medicine [address] [place] [id number] Instructional Systems Design Consultant: Adilia Taylor Telephone Intake, Staff 10/29/2024 3:00 PM EST Office Visit [address] [phone] Kristine Meza NP Pre-op evaluation (Primary Dx) 10/29/2024 Orders Only [facility] Cardiac Noninvasive [address] [place] [address] Zoila Instructor [employer], 10/27/[address] [phone] Molina Dias MD Pre-OP 10/23/2024 Orders Only [address] [phone] Molina Dias MD Postoperative atrial fibrillation (Primary Dx) 10/22/2024 myChart Message [address] [phone] Molina Dias MD labs 10/21/2024 10:00 AM EST Follow-Up [address] [phone] Molina Dias MD Spinal stenosis, unspecified spinal region (Primary Dx); Type 2 diabetes mellitus without complication, without long-term current use of insulin; Moderate persistent asthma without complication; Essential hypertension; Other iron deficiency anemia; Dysuria; Postoperative atrial fibrillation; Prostate cancer; Preoperative clearance 10/21/2024 myChart Message [facility] [address] [place] [phone] Molina Dias MD You 10/21/2024 myChart Message [facility] [address] [place] [phone] Molina Dias MD Thanks 10/03/2024 Documentation [facility] [address] [place] [phone] Leeann Mosquera MD 09/15/2024 Refill [facility] 4th floor Cardiology Medicine [address] [place] [phone] Instructional Systems Design Consultant: Leeann Garcia MD from Last 3 Months Immunizations Immunization Administration Dates Next Due COVID-19, Pfizer, mRNA, Biva lent Booster, PF, 30 mcg/0.3 mL dose (for age 12 y and up) 07/11/2022 Covid-19 Vaccine Unspecified 06/27/2023 Covid-19, Pfizer, mRNA, [place] valent, PF 30 mcg/0.3 mL dose (for ages 12 and older) 07/01/2021,11/11/2020,10/21/2020 Covid-19, Pfizer, mRNA, [place] valent, PF, 30 mcg/0.3 mL dose, aurelio-sucrose (COMIRNATY)(for ages 12 and older) 12/19/2021 Covid-19, Pfizer, mRNA, Aurelio -sucrose Vaccine, PF, 30 mcg/0.3 mL (for age 12 y and up) 06/24/2024,07/03/2023 INFLUENZA, SPLIT VIRUS, TRIVALENT, PF 07/11/2016 ,06/23/2014,06/12/2012 Influenza, High Dose Seasona l, Preservative Free 06/24/2024,08/27/2019,2017,07/14 Influenza, High Dose Seasona l, Quadrivalent PF 07/11/2022,07/09/2020 Influenza, Injectable, Quadr ivalent Preservative Free 07/17/2023,07/01/2021 Influenza, Injectable, Quadr ivalent, Contains Preservative 07/16/2018 Influenza, Trivalent, MDV, Injectable 07/13/2015 Pneumococcal Conjugate Vacci ne, 13 Valent 07/13/2015 Pneumococcal Polysaccharide Vaccine, 23 Valent 06/12/2012 RSV vaccine, recombinant, pr otein subunit RSVpreF, adjuvant reconstituted, 0.5 mL, PF 07/17/2023 Tetanus Toxoid, Reduced Diph theria Toxoid, and Acellular Pertussis Vaccine, Adsorbed 04/10/2024,06/12/2012 Zoster Vaccine Recombinant 06/25/2019,03/28/2019 Family History Medical History Relation Name Comments Other Brother Fraternal histo ry of Feeling Fine No Known Problems Daughter 1 No Known Problems Daughter 2 Other Father Paternal histor y of Feeling Fine Diabetes Mother Other Mother Maternal histor y of Congestive Heart Failure /Maternal history of Mother At Age ____ 74 Relation Name Status Comments Brother Alive Daughter 1 Alive Daughter 2 Alive Father Mother Social History Tobacco Use Types Packs/Day Years Used Date Smoking Tobacco: Former Cigarettes Q uit: 1982 Smokeless Tobacco: Never Tobacco Cessation:Counseling Given: Not Answered Comments:: Alcohol Use Standard Drinks/Week Comments Not Currently 0 (1 standard drink = 0.6 oz pure alcohol) non-alcoholic beer made by [employer] [facility] [employer] Answer Date Recorded In the past 12 months has th e [employer], gas, oil, or water [employer] threatened to shut off services in your [...] file Not on file Not on file Last Filed Vital Signs Vital Sign Reading Time Taken Comments Blood Pressure 142/70 10/21/2024 10:09 AM EST Pulse 71 10/21/2024 10:09 AM EST Temperature 36.6 ??C (97.9 ??F) 11/09/2023 2:32 PM ES T Respiratory Rate 18 05/16/2024 10:15 AM EDT Oxygen Saturation 99% 10/21/2024 10:09 AM EST Inhaled Oxygen Concentration - - Weight 91.4 kg (201 lb 9.6 oz) 10/21/2024 10:09 AM EST Height 185.4 cm (6' 1 ) 04/02/2024 1:58 PM EDT Body Mass Index 26.6 04/02/2024 1:58 PM EDT Plan of Treatment Upcoming Encounters Date Type Department Care Team (Late st Contact Info) Description 12/29/2024 8:40 AM EDT Follow-Up [facility] 4th floor Cardiology Medicine [address] [place] [id number] Instruction[employer] Design Consultant: Leeann Garcia MD [address] [place] [id number] Health Maintenance Due Date Last Done Comments Ophthalmology Exam 08/17/2024 08/17/2023, 1 10/18/2022, 02/01/2022, Additional history exists COVID-19 Vaccine (8 - Pfizer risk season) 2024 06/24/2024, 07/03/2023, 06/27/2023, Additional history exists Hemoglobin A1C 02/27/2025 08/29/2024, 03/17, 10/19/2023, Additional history exists Urine Microalbumin 04/02/2025 04/02/2024, 1 10/31/2020, 04/02/2020, Additional history exists Medicare AWV 04/03/2025 04/02/2024, 02/15, 02/15/2022, Additional history exists Fall Risk Screening 10/14/2025 10/14/2024 Social Drivers of Health Annual Screening 10/14/2025 10/14/2024 Basic Metabolic Panel 10/21/2025 10/21/2024 , 08/29/2024, 05/16/2024, Additional history exists Colonoscopy 01/23/2027 01/23/2022, 05/2022, 11/08/2011 DTaP,Tdap,and Td Vaccines (3 - Td or Tdap) 04/10/2034 04/10/2024, 06/12/2012 Tobacco Screening 09/17/2042 10/21/2024 Pneumococcal Vaccine: 50+ Years Completed 07/13/2015, 06/12/2012 Zoster Vaccines Completed 06/25/2019, 03/28/2019 RSV Vaccine (60+ years old and patients) Completed 07/17/2023 CT Lung Cancer Screening (12 months, previous LungRADS 1 or 2) Discontinued 10/19/2023 Influenza Vaccine Completed 06/24/2024, , 07/11/2022, Additional history exists Alcohol/Substance Use Screening Completed 10/14/2024 Depression Screening and Follow-Up Discontinued 10/14/2024 Health Care Proxy Review Discontinued Hepatitis B Vaccines Aged Out No long er eligible based on patient's age to complete this topic Hepatitis C Screening Discontinued Statin Therapy Discontinued Procedures * Due to [place] state law, this organization might not be sharing negative HIV tests. Procedure Name Priority Date/Time Associated Diagnosis Comments PROCEDURE - SCANNED 11/20/2024 PROCEDURE - SCANNED 11/20/2024 ECG 12-LEAD Routine 10/29/2024 3:13 PM EST URINALYSIS W/MICROSCOPIC Routine 10/21/2024 11:51 AM EST URINE CULTURE, ROUTINE Routine 10/21/2024 11:51 AM EST Dysuria PSA, TOTAL REFLEX TO FREE Routine 10/21/2024 11:34 AM EST IRON, TIBC AND FERRITIN PANEL (5616) Routine 10/21/2024 11:34 AM EST Other iron deficiency anemia LIPID PANEL Routine 10/21/2024 11:34 AM EST Type 2 diabetes mellitus without complication, without long-term current use of insulin CBC Routine 10/21/2024 11:34 AM EST Other iron deficiency anemia COMPREHENSIVE METABOLIC PANEL Routine 10/21/2024 11:34 AM EST Type 2 diabetes mellitus without complication, without long-term current use of insulin HEMOGLOBIN A1C Routine 08/29/2024 10:20 AM EST Essential hypertension MICROALBUMIN, RANDOM URINE WITH CREATININE Routine 04/02/2024 3:27 PM EDT Type 2 diabetes mellitus without complication, without long-term current use of insulin CT CHEST WO CONTRAST Routine 10/19/2023 6:49 PM EST DIABETES EYE EXAM 08/17/2023 HM COLONOSCOPY 01/23/2022 from Last 3 Months or Most Recently Relevant to Health Maintenance Results * Due to [place] state law, this organization might not be sharing negative HIV tests. * PROCEDURE - SCANNED (11/20/2024) us Onbase Scan [facility][Note 3] SCANNED PROCEDURES Final Resu lt * PROCEDURE - SCANNED (11/20/2024) us Onbase Scan Moncho SCANNED PROCEDURES Final Resu lt * ECG 12 lead (10/29/2024 3:13 PM EST) Ventricular Rate EKG 75 BPM MUSE EKG Atrial Rate 75 BPM MUSE EKG DE Interval 150 ms MUSE EKG QRS Interval 114 ms MUSE EKG QT Interval 408 ms MUSE EKG QTC Interval 455 ms MUSE EKG P Prentiss 54 degrees MUSE EKG R P[place] 15 degrees MUSE EKG T Wave P[place]iss 38 degrees MUSE EKG 10/29/2024 3:13 PM EST 11/14/2024 10:14 AM EST Impressions MUSE EKG - 11/14/2024 10:14 AM EST NORMAL SINUS RHYTHM NORMAL ECG WHEN COMPARED WITH ECG OF 31-JAN-2024 09:27, INCOMPLETE RIGHT BUNDLE BRANCH BLOCK IS NO LONGER PRESENT Confirmed by Gavin Hernández ([id number]) on 11/14/2024 10:14:54 AM us Instructor [employer] Zoila CHIRINOS ECG ORDERABLES Final Resu lt MUSE EKG * Urinalysis With Microscopic (No Culture)-[facility] ONLY (10/21/2024 11:51 AM EST) Color DARK YELLOW YELLOW 10/21/2024 5:48 PM EST [employer] [facility] Appearance CLEAR CLEAR 10/21/2024 5:48 PM EST [employer] [facility] Specific [place] 1.018 1.001 - 1.035 10/21/2024 5:48 PM EST [employer] [facility] PH 7.0 5.0 - 8.0 10/21/2024 5:48 PM EST [employer] [facility] Glucose NEGATIVE NEGATIVE 10/21/2024 5:48 PM EST [employer] [facility] Bilirubin NEGATIVE NEGATIVE 10/21/2024 5:48 PM EST [employer] [facility] Ketones NEGATIVE NEGATIVE 10/21/2024 5:48 PM EST [employer] [facility] Occult Blood NEGATIVE NEGATIVE 10/21/2024 5:48 PM EST [employer] [facility] Protein NEGATIVE NEGATIVE 10/21/2024 5:48 PM EST [employer] [facility] Nitrite NEGATIVE NEGATIVE 10/21/2024 5:48 PM EST [employer] [facility] Leukocyte Esterase NEGATIVE NEGATIVE 10/21/2024 5:48 PM EST [employer] [facility] WBC, Urine NONE SEEN 0 - 5 /HPF 10/21/2024 5:48 PM EST [employer] [facility] RBC 0-2 0 - 2 /HPF 10/21/2024 5:48 PM EST [employer] [facility] Squamous Epithelial Cells NONE SEEN < OR = 5 /HPF 10/21/2024 5:48 PM EST [employer] Bacteria NONE SEEN NONE SEEN /HPF 10/21/2024 5:48 PM EST [employer] Hyaline Cast NONE SEEN NONE SEEN /LPF 10/21/2024 5:48 PM EST [employer] Note See Comments 10/21/2024 5:48 PM EST [employer] Comment: This urine was analyzed for the presence of WBC, RBC, bacteria, casts, and other formed elements. Only those elements seen were reported. 10/21/2024 11:5 1 AM EST 10/21/2024 4:54 PM EST us Molina Dias MD LAB URINE ORDERABLES Final Res ult Performing Organization Address City/[facility]/ZIP Co de Phone Number [facility] [address] [address], [place] [phone] [employer] [address] [address] * Urine Culture, Routine (10/21/2024 11:51 AM EST) Micro Number [id number] 10/22/2024 11:53 AM EST [employer] Specimen Quality Adequate 10/22/2024 11:53 AM EST [employer] Source URINE, CLEAN CATCH 10/22/2024 11:53 AM EST [employer] Status FINAL 10/22/2024 11:53 AM EST [employer] Result No Growth 10/22/2024 11:53 AM EST [employer] Urine Urine specimen collection, clean catch / Unknown 10/21/2024 11:51 AM EST 10/21/2024 9:34 PM EST Molina Dias MD LAB MICROBIOLOGY - GENERAL ORD ERABLES Final Result Performing Organization Address City/[facility]/ZIP Co de Phone Number [facility] [address], [place] [address], [place] [phone] [employer] [address] [address] * (ABNORMAL) Iron, TIBC and Ferritin Panel (10/21/2024 11:34 AM EST) Iron, Total 52 50 - 180 mcg/dL 10/22/2024 4:01 AM EST [employer] [facility] Iron Binding Capacity 362 250 - 425 mcg/dL (calc) 10/22/2024 4:01 AM EST [employer] [facility] % Saturation 14(L) 20 - 48 % (calc) 10/22/2024 4:01 AM EST [employer] [facility] Ferritin 26 24 - 380 ng/mL 10/21/2024 11:25 PM EST [employer] [facility] Blood Structure of peripheral vein / Unknown 10/21/2024 11:34 AM EST 10/21/2024 10:18 PM EST Narrative [facility] - 10/22/2024 12:31 PM EST FASTING:YES us Molina Dias MD LAB BLOOD ORDERABLES Final Res ult Performing Organization Address City/[facility] Co de Phone Number [facility] [address]rd Floor, [place] [address], [place] [phone] [employer] [facility] [address] [place] [address] * PSA, Total Reflex to Free (10/21/2024 11:34 AM EST) [facility] PSA, Total <0.1 < OR = 4.0 ng/mL 10/22/2024 12:30 PM EST [employer] [facility] Comment: The Total PSA value from this assay system is standardized against the equimolar PSA standard. The test result will be approximately 20% higher when compared to the WHO-standardized Total PSA (Siemens assay). Comparison of serial PSA results should be interpreted with this fact in mind. PSA was performed using the Reyna Cambridge Immunoassay method. Values obtained from different assay methods cannot be used interchangeably. PSA levels, regardless of value, should not be interpreted as absolute evidence of the presence or absence of disease. 10/21/2024 11:3 4 AM EST 10/21/2024 10:47 PM EST Narrative [facility] - 10/22/2024 12:31 PM EST FASTING:YES us Molina Dias MD LAB BLOOD ORDERABLES Final Res ult [facility] [address], [place] [address], [employer] [facility] [address] [place] [address] * (ABNORMAL) CBC (10/21/2024 11:34 AM EST) White Blood Cell Count 7.0 3.8 - 10.8 Thousand/ uL 10/21/2024 7:53 PM EST [employer] Red Blood Cell Count 4.89 4.20 - 5.80 Million/u L 10/21/2024 7:53 PM EST [employer] Hemoglobin 13.0(L) 13.2 - 17.1 g/dL 10/21/2024 7:53 PM EST [employer] Hematocrit 40.6 38.5 - 50.0 % 10/21/2024 7:53 PM EST [employer] MCV 83.0 80.0 - 100.0 fL 10/21/2024 7:53 PM EST [employer] MCH 26.6(L) 27.0 - 33.0 pg 10/21/2024 7:53 PM EST [employer] [facility] MCHC 32.0 32.0 - 36.0 g/dL 10/21/2024 7:53 PM EST [employer] Comment: For adults, a slight decrease in the calculated MCHC value (in the range of 30 to 32 g/dL) is most likely not clinically significant; however, it should be interpreted with caution in correlation with other red cell parameters and the patient's clinical condition. RDW 16.0(H) 11.0 - 15.0 % 10/21/2024 7:53 PM EST [employer] [facility] Platelet Count 384 140 - 400 Thousand/ uL 10/21/2024 7:53 PM EST [employer] MPV 9.7 7.5 - 12.5 fL 10/21/2024 7:53 PM EST [employer] Blood Structure of peripheral vein / Unknown 10/21/2024 11:34 AM EST 10/21/2024 4:42 PM EST Narrative [facility] - 10/22/2024 12:31 PM EST FASTING:YES Molina Dias MD LAB BLOOD ORDERABLES Final Res ult [facility] [address], [place] [address], [place] [phone] [employer] [facility] [address] [place] [address] * (ABNORMAL) Lipid panel (10/21/2024 11:34 AM EST) [facility] Cholesterol, Total 106 <200 mg/dL 10/22/2024 4:01 AM [employer] [facility] HDL Cholesterol 36(L) > OR = 40 mg/dL 10/22/2024 4:01 AM EST [employer] [facility] Triglycerides 136 <150 mg/dL 10/22/2024 4:01 AM [employer] [facility] LDL-Cholesterol 48 mg/dL (calc) 10/22/2024 4:02 AM [employer] [facility] Comment: Reference range: <100 Desirable range <100 mg/dL for primary prevention; ?? <70 mg/dL for patients with CHD or diabetic patients with > or = 2 CHD risk factors. LDL-C is now calculated using the Leobardo-Stuart calculation, which is a validated novel method providing better accuracy than the Friedewald equation in the estimation of LDL-C. Leobardo SS et al. ANDREW. 2013;310(19): 7017-3213 (http://education.Tarisa/faq/GOO302) Chol/HDLC Ratio 2.9 <5.0 (calc) 10/22/2024 4:02 AM [employer] [facility] Non HDL Cholesterol 70 <130 mg/dL (calc) 10/22/2024 4:02 AM [employer] [facility] Comment: For patients with diabetes plus 1 major ASCVD risk factor, treating to a non-HDL-C goal of <100 mg/dL (LDL-C of <70 mg/dL) is considered a therapeutic option. Blood Structure of peripheral vein / Unknown 10/21/2024 11:34 AM EST 10/21/2024 10:18 PM EST Narrative [facility] - 10/22/2024 12:31 PM EST FASTING:YES us Molina Dias MD LAB BLOOD ORDERABLES Final Res ult [facility] [address], [place] [address], [place] [phone] [employer] [address] [place] [address] * (ABNORMAL) Comprehensive Metabolic Panel (10/21/2024 11:34 AM EST) Glucose 106(H) 65 - 99 mg/dL 10/22/2024 4:01 AM [employer] Comment: ? Fasting reference interval For someone without known diabetes, a glucose value between 100 and 125 mg/dL is consistent with prediabetes and should be confirmed with a follow-up test. BUN 17 7 - 25 mg/dL 10/22/2024 4:01 AM [employer] Creatinine 0.95 0.70 - 1.28 mg/dL 10/22/2024 4:01 AM [employer] eGFR 81 > OR = 60 mL/min/1. 73m2 10/22/2024 4:01 AM [employer] Bun/Creatinine Ratio SEE NOTE: 6 22 (calc) 10/22/2024 4:01 AM [employer] Comment: ?? Not Reported: BUN and Creatinine are within ?? reference range. ? Sodium 136 135 - 146 mmol/L 10/22/2024 4:01 AM [employer] Potassium 4.6 3.5 - 5.3 mmol/L 10/22/2024 4:01 AM [employer] Chloride 102 98 - 110 mmol/L 10/22/2024 4:01 AM [employer] Carbon Dioxide 26 20 - 32 mmol/L 10/22/2024 4:01 AM [employer] Calcium 9.7 8.6 - 10.3 mg/dL 10/22/2024 4:01 AM [employer] Protein, Total 7.7 6.1 - 8.1 g/dL 10/22/2024 4:01 AM [employer] Albumin 4.3 3.6 - 5.1 g/dL 10/22/2024 4:01 AM [employer] Globulin 3.4 1.9 - 3.7 g/dL (calc) 10/22/2024 4:01 AM EST [employer] [facility] Albumin/Globuli n Ratio 1.3 1.0 - 2.5 (calc) 10/22/2024 4:01 AM EST [employer] [facility] Bilirubin, Total 0.4 0.2 - 1.2 mg/dL 10/22/2024 4:01 AM EST [employer] [facility] Alkaline Phosphatase 95 35 - 144 U/L 10/22/2024 4:01 AM EST [employer] [facility] AST 17 10 - 35 U/L 10/22/2024 4:01 AM EST [employer] [facility] ALT 13 9 - 46 U/L 10/22/2024 4:01 AM [employer] [facility] Blood Structure of peripheral vein / Unknown 10/21/2024 11:34 AM EST 10/21/2024 10:18 PM EST Narrative [facility] - 10/22/2024 12:31 PM EST FASTING:YES us Molina Dias MD LAB BLOOD ORDERABLES Final Res ult [facility] [address], [place] [address], [employer] [facility] [address] [place] [address] * (ABNORMAL) Hemoglobin A1c (08/29/2024 10:20 AM EST) Hemoglobin A1C 7.8(H) <5.7 % of total Hgb 08/29/2024 8:54 PM EST [employer] [facility] Comment: For someone without known diabetes, a hemoglobin A1c value of 6.5% or greater indicates that they may have diabetes and this should be confirmed with a follow-up test. For someone with known diabetes, a value <7% indicates that their diabetes is well controlled and a value greater than or equal to 7% indicates suboptimal control. A1c targets should be individualized based on duration of diabetes, age, comorbid conditions, and other considerations. Currently, no consensus exists regarding use of hemoglobin A1c for diagnosis of diabetes for children. ?? eAG (MG/DL) 177 mg/dL 08/29/2024 8:54 PM EST [employer] eAG (MMOL/L) 9.8 mmol/L 08/29/2024 8:54 PM EST [employer] Blood Structure of peripheral vein / Unknown 08/29/2024 10:20 AM EST 08/29/2024 5:50 PM EST Narrative [facility] - 08/30/2024 1:23 AM EST FASTING:YES Molina Dias MD LAB BLOOD ORDERABLES Final Res ult Performing Organization Address [facility] de Phone Number [facility] [address], [place] [address], [place] [phone] [employer] [facility] [address] [place] [address] * Microalbumin, Random Urine with Creatinine (04/02/2024 3:27 PM EDT) Creatinine, Random Urine 294 20 - 320 mg/dL 04/03/2024 4:10 PM EDT [employer] Microalbumin 3.9 mg/dL 04/03/2024 4:10 PM EDT [employer] Comment: Reference Range Not established Microalbumin/Crea tinine Ratio, Random Urine 13 <30 mg/g creat 04/03/2024 4:10 PM EDT [employer] Comment: The ADA defines abnormalities in albumin excretion as follows: Albuminuria Category ?Result (mg/g creatinine) Normal to Mildly increased ?? <30 Moderately increased ? 30-299 Severely increased ? > OR = 300 The ADA recommends that at least two of three specimens collected within a 3-6 month period be abnormal before considering a patient to be within a diagnostic category. Urine Voided urine specimen / Unknown 04/02/2024 3:27 PM EDT 04/02/2024 11:09 PM EDT Narrative [facility] - 04/11/2024 1:09 AM EDT FASTING:NO us Molina Dias MD LAB URINE ORDERABLES Final Res ult Performing Organization Address [facility]/ZIP Co de Phone Number [facility] [address], [place] [address], [employer] [facility] [address] [place] [address] * CT Chest without Contrast (10/19/2023 6:49 PM EST) Anatomical Region Laterality Modality Body Computed Tomogra phy 10/19/2023 7:46 PM EST Impressions 10/20/2023 8:52 AM EST Impression: No suspicious pulmonary nodules or masses, calcified millimetric granulomas. No adenopathy, no pleural abnormalities. Moderate aortic valve calcifications. Severe coronary calcifications. No substantial calcifications of the ascending aorta. If this radiology report contains a blank impression section, it is an incomplete radiology report. ??Please contact the interpreting radiologist or applicable radiology division as soon as possible to obtain the completed interpretation. ? Workstation ID: [id number] Up-to-date CT equipment and radiation dose reduction techniques were employed. CTDIvol: 15.3 mGy. DLP: 595 mGy-cm. Narrative 10/20/2023 8:52 AM EST Indication: ??pre-op CABG, Comparison: No comparison. Dose: For radiation dose control at least one of the following techniques was used in this procedure (1) Automated exposure control (2) Adjustment of the mA and/or kV according to patient size (3) Use of iterative reconstruction technique. Findings: Neck and thoracic inlet: No abnormality. Mediastinum and large vessels: ? Aorta Mild aortic wall calcifications. No substantial calcifications of the ascending aorta, mild calcifications of the aortic arch and descending aorta. Pulmonary arteries Unremarkable shape and diameter. Esophagus Small hiatal hernia. Other mediastinal findings No other abnormal mediastinal findings are present. Heart: Cardiac size Heart size is normal. Coronary arteries Severe coronary calcifications. Valves Moderate aortic valve calcifications. Pericardium No abnormality. Lymph nodes: Supraclavicular and axillary Normal sized lymph nodes, no enlarged lymph nodes. Mediastinal Normal sized lymph nodes, no enlarged lymph nodes. Hilar Unremarkable hilar contours. The absence of intravenous contrast limits the evaluation for adenopathy. Others None. Lung parenchyma: Mild bilateral apical scarring with small nodular components (2, 42). Millimetric calcified lingular granuloma (2, 175 and 200). No suspicious pulmonary nodules or masses. Airways: No abnormality. Pleura: No abnormality. Upper abdomen: No abnormality in the visualized upper abdominal structures, within the limitations of examination technique. Chest wall and bones: Mild degenerative vertebral disease. Resulting Agency Comment [id number] Procedure Note Candelario Mae MD PhD - 10/20/2023 Indication: pre-op CABG, Comparison: No comparison. Dose: For radiation dose control at least one of the following techniqueswas used in this procedure (1) Automated exposure control (2) Adjustmentof the mA and/or kV according to patient size (3) Use of iterativereconstruction technique. Findings: Neck and thoracic inlet: No abnormality. Mediastinum and large vessels: Aorta Mild aortic wall calcifications. No substantial calcifications of the ascending aorta, mild calcificationsof the aortic arch and descending aorta. Pulmonary arteries Unremarkable shape and diameter. Esophagus Small hiatal hernia. Other mediastinal findings No other abnormal mediastinal findings are present. Heart: Cardiac size Heart size is normal. Coronary arteries Severe coronary calcifications. Valves Moderate aortic valve calcifications. Pericardium No abnormality. Lymph nodes: Supraclavicular and axillary Normal sized lymph nodes, no enlarged lymph nodes. Mediastinal Normal sized lymph nodes, no enlarged lymph nodes. Hilar Unremarkable hilar contours. The absence of intravenous contrast limitsthe evaluation for adenopathy. Others None. Lung parenchyma: Mild bilateral apical scarring with small nodular components (2, 42). Millimetric calcified lingular granuloma (2, 175 and 200). No suspicious pulmonary nodules or masses. Airways: No abnormality. Pleura: No abnormality. Upper abdomen: No abnormality in the visualized upper abdominal structures, within thelimitations of examination technique. Chest wall and bones: Mild degenerative vertebral disease. IMPRESSION: Impression: No suspicious pulmonary nodules or masses, calcified millimetricgranulomas. No adenopathy, no pleural abnormalities. Moderate aortic valvecalcifications. Severe coronary calcifications. No substantialcalcifications of the ascending aorta. If this radiology report contains a blank impression section, it is anincomplete radiology report. Please contact the interpreting radiologistor applicable radiology division as soon as possible to obtain thecompleted interpretation. Workstation ID: [id number] Up-to-date CT equipment and radiation dose reduction techniques wereemployed. CTDIvol: 15.3 mGy. DLP: 595 mGy-cm. 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 [employer] Expl juleeion Health Care Proxy 06/30/2014 12:00 AM Briana Barkley Health Care Proxy 04/28/2013 12:00 AM 04/28 * Full Code (Latest Code Status on File) Date Activated Date Inactivated Comments 10/22/2023 8:06 PM 10/27/2023 4:21 PM * Full Code Date Activated Date Inactivated Comments 10/19/2023 7:49 AM 10/22/2023 8:06 PM Healthcare Agents on File Name Relationship Healthcare Agent Relationshi p Communication Briana Barkley Spouse Healthcare Proxy - Primary Care Teams Golf Instructor Relationship Specialty Start Date End Date Molina Dias MD [address] [place] [id number] PCP - General Family Medicine 04/05/17
--- OUTSIDE RECORDS SUMMARY | 2024-12-11 19:00 | XMS_ITS | Encounter Summary ---
Author Organization [facility] Address [address] [place] [address] Care Team Providers Care Senior Care Manager Name Role Phone Molina Dias MD Primary Care Provider [phone] Encounter Details Date Type Department Care Team (Late st Contact Info) Description 08/05/2020 Orders Only [facility]- [address] [place] [address] [address] [place] [phone] Molina Dias MD [address] [place] [phone] Exposure to SARS-associated coronavirus (Primary Dx) Social History Tobacco Use Types Packs/Day Years Used Date Smoking Tobacco: Former Smokeless Tobacco: Never Comments:: Alcohol Use Standard Drinks/Week Comments Yes 4 (1 standard drink = 0.6 oz pur [...] Info) Description 12/29/2024 8:40 AM EDT Follow-Up [facility] 4th floor Cardiology Medicine [address] [place] [phone] Temporary Data Entry Clerk: Leeann Garcia MD [address] [place] [address] documented as of this encounter Results * Due to [place] state law, this organization might not be sharing negative HIV tests. * COVID-19 PCR for Surveillance of Asymptomatic Patient, BULLET LUBRICANT MIXER/OP/Saliva (08/05/2020 12:10 PM EST) SARS CoV 2 RNA, RT PCR Not Detected Not Detected 08/05/2020 11:28 PM EST [facility] Comment:A Not Detected (Nega tive) test result is indicative of the absence of SARS-CoV-2 RNA at the level of LoD (Limit of Detection). A negative result does not rule out the possibility of COVID-19 and should not be used as the sole basis for treatment or patient management decisions. If COVID-19 is still suspected, based on exposure history together with other clinical findings, re-testing should be considered. Saliva Mouth region structure / Unknown Non-Blood Collection / Unknown 08/05/2020 12:10 PM EST 08/05/2020 2:36 PM EST Narrative [facility] - 08/05/2020 11:28 PM EST These tests were developed, validated, and their performance characteristics determined by the Molecular Virology Laboratory at [facility] under CLIA [id number]. They have not been cleared or approved by the U.S. Food and Drug Administration (FDA). FDA Policy for Diagnostic Tests for Coronavirus Disease-2019 during the Public Health Emergency issued December 01, 2019, is followed. us Molina Dias MD LAB BODY FLUIDS AND STOOLS ORD ERABLES Final Result [facility] [employer] [facility] [address] [place] [address], documented in this encounter Visit Diagnoses Diagnosis Exposure to SARS-associated coronavirus- Primary documented in this encounter Additional Health Concerns Infection Onset Date Last Indicated Resolved Time COVID-19 - Suspected infection 08/05/2020 08/05/2020 08/19/2020 10:33 PM EST documented as of this encounter Care Teams Senior Care Manager Relationship Specialty Start Date End Date Molina Dias MD [address] [place] [id number] PCP - General Family Medicine 04/05/17 documented as of this encounter
--- OUTSIDE RECORDS SUMMARY | 2024-12-11 19:00 | XMS_ITS ---
Author Organization [facility] Address [address] [place] [address] Care Team Providers Care Convention Manager Name Role Phone Molina Dias MD Primary Care Provider [phone] Active Problems Problem Noted Date Diagnosed Date Iron deficiency anemia 10/21/2024 Assessment & Plan (10/21/2024 11:58 AM EST): Is been without symptoms for some time. Will check H&H as well as iron studies. Dysuria 10/21/2024 Assessment & Plan (10/21/2024 11:58 AM EST): Based upon his history of previous prostate cancer obtain PSA as well as UA and PEST CONTROL PILOT. Preoperative clearance 10/21/2024 Assessment & Plan (10/21/2024 [...] statin (hx intolerance to statin, was on PULMONARY FUNCTION TECHNICIAN Repatha) - Resume Repatha on discharge Assessment [...] stable since initial surgery 2007. Goes to [facility]. Rec PT. Not interested now Assessment & Plan (04/06/2020 12:09 PM EDT): I think this is primarily hip and not due to his spinal stenosis. Amy testing implying hip rather than low back. He had this replaced at [facility] and I recommend he contact the orthopedic [...] ex given, add inulin fiber before meals; ercheck labs 10/07 Assessment & Plan (04/06/2020 12:10 PM EDT): He is started to see that his A1c went from 6.5 to up to over 8. We discussed adding another agent and he would like to continue to try to change his diet. He states he has been eating [place] and ice cream every day for the [...] & Plan (10/24/2023 5:47 PM EST): Continue PULMONARY FUNCTION TECHNICIAN advair and albuterol inhalers. Interchanged to Advair [...] operative results resolution. [facility] Urged him to please do no heavy lifting no raking no other activity except for walking until we get this addressed and we discussed the implications of him having serious nerve damage. Assessment & Plan (08/03/2021 4:22 PM EST): He now feels it may be time to consider surgery. We will repeat the MRI and pending his agreement will refer either back to [facility] or out to [place] Assessment & Plan (01/12/2021 2:28 PM EDT): [...] Plan (10/08/2019 1:41 PM EST): Going to [facility] later this week. Overall feels fair and [...] will attempt to have him seen by [facility] urology and have him follow-up with Dr. Walker for radiation therapy. Assessment & Plan (02/11/2020 1:48 PM EDT): Awaiting PSA from last week Still waiting [place] [facility] [place] Will follow up [facility] about appointment. Assessment & Plan (12/05/2019 2:10 PM EDT): Agree with seeing Rad Onc in [place] and getting second opinion in [facility]. Will set up. Assessment & Plan (10/08/2019 [...] He would like to go back to [place] to see urologist there to discuss next steps when he returns from [place] in a few weeks and I agree [...] get a second opinion from urologist in [place] and repeat his PSA in 6 weeks. [...] a few flares while he was in [place]. Will check uric acid today Assessment & [...] of weaning off toprol. Follow up thru [facility] Assessment & Plan (07/08/2024 5:14 PM EDT): [...] & Plan (10/26/2023 9:51 PM EST): Hold PULMONARY FUNCTION TECHNICIAN lisinopril 40 mg daily and toprol XL [...] 2 weeks. He will send me a [employer] message while he travels through [place] to update me On how his blood [...] of [employer] colored urine. His states the manifest/order organizer print orders saw him during the hospitalization and have [...] PM EDT): We will recheck lipid panel. Current Treatment and Therapy Plans No current plan information found. Past Treatment and Therapy Plans No past plan information found. Lifetime Dose Tracking * Chemical Lifetime Dose Automatic Entry Manual Entr y TotalDLP 595 mGy 595 mGy 0 mGy [id number] 8.6 mSv 8.6 mSv 0 mSv CTDIvol Max 15.3 mGy 15.3 mGy 0 mGy CTDIvol Min 15.3 mGy 15.3 mGy 0 mGy Radiation - mGy 249 mGy 0 mGy 249 mGy Resolved Problems Problem Noted Date Diagnosed Date [...]
--- OUTSIDE RECORDS SUMMARY | 2024-12-11 19:00 | XMS_ITS | Clinical Summary ---
Author Organization [facility] Address [address] [place] [address] Care Team Providers Care Sewage Reticulation Drafting Officer Name Role Phone Arun Molina Carvalho Primary Care Provider [phone] Allergies No known active allergies Medications Gemfibrozil 600 MG OR TABS 1 TABLET TWICE DAILY BEFORE MEALS Active EZETIMIBE (ZETIA) 10 MG OR TABS 1 TABLET DAILY Active ENALAPRIL MALEATE 20 MG OR TABS 1 TABLET DAILY Active Allopurinol 300 MG OR TABS 1 TABLET DAILY Active ASPIRIN 81 MG OR TABS 1 TABLET DAILY Active GLUCOSAMINE CHONDROITIN COMPLX OR CAPS 1 CAPSULE THREE TIMES DAILY WITH M EALS Active ACETAMINOPHEN (MASOPHEN) 500 MG OR TABS 1 TABLET EVERY 4 HOURS NEEDED Active Social History Tobacco Use Types Packs/Day Years Used Date Smoking Tobacco: Never Assessed Sex and Gender Information Value Date Recorded Sex Assigned at Not on file Legal Sex Male 1:04 AM EDT Gender Identity Not on file Sexual Orientation Not on file Last Filed Vital Signs Vital Sign Reading Time Taken Comments Blood Pressure 162/92 01/12/2010 8:59 AM EDT Pulse - - Temperature 37.1 ??C (98.7 ??F) 01/12/2010 8:59 AM ED T Respiratory Rate - - Oxygen Saturation - - Inhaled Oxygen Concentration - - Weight - - Height - - Body Mass Index - - Plan of Treatment Health Maintenance Due Date Last Done Comments Hepatitis C Screening 1945 DTaP/Tdap/Td (1 - Tdap) 1963 Pneumococcal 50+ years (1 of 1 - PCV) 1995 Zoster (Shingrix) (1 of 2) 1995 RSV (1 - 1-dose 75+ series) 2020 COVID-19 Vaccine (2023-2 5 season) 2024 Influenza (#1) 2024 HPV Vaccine Aged Out No longer eligi ble based on patient's age to complete this topic Hep A Aged Out No longer eligi ble based on patient's age to complete this topic Hep B Aged Out No longer eligi ble based on patient's age to complete this topic Hib Aged Out No longer eligi ble based on patient's age to complete this topic Meningococcal ACWY Aged Out No longer eligible based on patient's age to complete this topic Zoster (Zostavax) Discontinued Insurance [facility] Care Teams Sewage Reticulation Drafting Officer Relationship Specialty Start Date End Date Molina Dias PCP - General 03/17/07
--- OUTSIDE RECORDS SUMMARY | 2024-12-11 19:00 | XMS_ITS | Referral Summary ---
Author Organization [facility] Address [address] [place] [address] Care Team Providers Care Lobby Porter Name Role Phone Molina Dias MD Primary Care Provider [phone] Encounters Date Type Department Care Team Description 12/11/[address] [phone] Molina Dias MD 11/14/2024 Telephone [facility] 4th floor Cardiology Medicine [address] [place] [address] Medical Billing Specialist: Adilia Taylor Telephone Intake, Staff 10/29/2024 Orders Only [facility] Cardiac Noninvasive [address] [place] [address] Zoila Brick Paving Checker, 10/29/2024 3:00 PM EST Office Visit [address] [phone] Kristine Meza NP Pre-op evaluation (Primary Dx) 10/27/[address] [address] Molina Dias MD Pre-OP 10/23/2024 Orders Only [address] [phone] Molina Dias MD Postoperative atrial fibrillation (Primary Dx) 10/22/2024 myChart Message [address] [address] Molina Dias MD labs 10/21/2024 Lawn Lovehart Message [facility] [address] [place] [phone] Molina Dias MD You 10/21/2024 Lawn LoveharNicOx Message [address] [address] Molina Dias MD Thanks 10/21/2024 10:00 AM EST Follow-Up [address] [phone] Molina Dias MD Spinal stenosis, unspecified spinal region (Primary Dx); Type 2 diabetes mellitus without complication, without long-term current use of insulin; Moderate persistent asthma without complication; Essential hypertension; Other iron deficiency anemia; Dysuria; Postoperative atrial fibrillation; Prostate cancer; Preoperative clearance 10/03/2024 Documentation [facility] Cardiology [address] [place] [address] Leeann Mosquera MD 09/15/2024 Refill [facility] 4th floor Cardiology Medicine [address] [place] [address] Medical Billing Specialist: Leeann Garcia MD from Last 3 Months Allergies No known active allergies Medications cholecalciferol [...] mcg/dose inhalerIndications:M oderate persistent asthma without complication ([facility]) Inhale 1 puff by mouth 2 times [...] tabletIndications:Di abetes mellitus type 2 in nonobese ([facility]) TAKE ONE TABLET BY MOUTH TWICE A [...] complication, without long-term current use of insulin ([facility]) Use to test 2 times daily. Diabetes [...] obtain PSA as well as UA and AIRLINE DISPATCHER. Preoperative clearance 10/21/2024 Assessment & Plan (10/21/2024 [...] statin (hx intolerance to statin, was on OVERHEAD CRANE OPERATOR Repatha) - Resume Repatha on discharge Assessment [...] stable since initial surgery 2007. Goes to [facility] Rec PT. Not interested now Assessment & Plan (04/06/2020 12:09 PM EDT): I think this is primarily hip and not due to his spinal stenosis. Amy testing implying hip rather than low back. He had this replaced at [facility] and I recommend he contact the [...] diet. He states he has been eating Portuguese and ice cream every day for the [...] & Plan (10/24/2023 5:47 PM EST): Continue OVERHEAD CRANE OPERATOR advair and albuterol inhalers. Interchanged to Advair [...] operative results resolution. He is referred to [facility]. Urged him to please do no heavy [...] back to [facility] or out to [place] Assessment & Plan (01/12/2021 2:28 PM EDT): [...] Plan (10/08/2019 1:41 PM EST): Going to [facility] later this week. Overall feels fair [...] will attempt to have him seen by [facility] urology and have him follow-up with Dr. Walker for radiation therapy. Assessment & Plan (02/11/2020 1:48 PM EDT): Awaiting PSA from last week Still waiting from [facility] for proton beam Will follow up [facility] about appointment. Assessment & Plan (12/05/2019 2:10 PM EDT): Agree with seeing Rad Onc in [place] and getting second opinion in [facility]. Will set up. Assessment & Plan (10/08/2019 [...] He would like to go back to [place] to see urologist there to discuss next steps when he returns from [place] in a few weeks and I agree [...] get a second opinion from urologist in [place] and repeat his PSA in 6 weeks. [...] a few flares while he was in [place]. Will check uric acid today Assessment & [...] of we[facility]l. [facility] Assessment & Plan (07/08/2024 5:14 PM EDT): [...] & Plan (10/26/2023 9:51 PM EST): Hold OVERHEAD CRANE OPERATOR lisinopril 40 mg daily and toprol XL [...] 2 weeks. He will send me a [employer] message while he travels through [place] to update me On how his blood [...] of [employer]a colored urine. His states the orchid superintendent saw him during the hospitalization and have [...] increase fluids and will continue to follow Immunizations Immunization Administration Dates Next Due COVID-19, Pfizer, mRNA, Biva lent Booster, PF, 30 mcg/0.3 mL dose (for age 12 y and up) 07/11/2022 Covid-19 Vaccine Unspecified 06/27/2023 Covid-19, Pfizer, mRNA, Lajas valent, PF 30 mcg/0.3 mL dose (for ages 12 and older) 07/01/2021,11/11/2020,10/21/2020 Covid-19, Pfizer, mRNA, Lajas valent, PF, 30 mcg/0.3 mL dose, aurelio-sucrose [...] Vaccine, Adsorbed 04/10/2024,06/12/2012 Zoster Vaccine Recombinant 06/25/2019,03/28/2019 Social History Tobacco Use Types Packs/Day Years Used Date Smoking Tobacco: Former Cigarettes Q uit: 1982 Smokeless Tobacco: Never Tobacco Cessation:Counseling Given: Not Answered Comments:: Alcohol Use Standard Drinks/Week Comments Not Currently 0 (1 standard drink = 0.6 oz pure alcohol) non-alcoholic beer made by [employer] [facility] Intiza Answer Date Recorded In the past 12 months has th [employer], gas, oil, or water [employer] threatened to shut off services in your [...] Info) Description 12/29/2024 8:40 AM EDT Follow-Up [facility] 4th floor Cardiology Medicine [address] [place] [address] Medical Billing Specialist: Adilia Mosquera, Leeann Mejias MD [address] [place] [address] Procedures * Due to [place] state law, this organization might not be [...] 6:49 PM EST DIABETES EYE EXAM 08/17/2023 COLONOSCOPY 01/23/2022 from Last 3 Months or Most Recently Relevant to Health Maintenance Results * Due to [place] state law, this organization might not be sharing negative HIV tests. * PROCEDURE - SCANNED (11/20/2024) us Onbase Scan [facility] SCANNED PROCEDURES Final Resu lt * PROCEDURE - SCANNED (11/20/2024) us Onbase Scan [facility] SCANNED PROCEDURES Final Resu lt * ECG 12 lead (10/29/2024 3:13 PM EST) Ventricular Rate EKG 75 BPM MUSE EKG Atrial Rate 75 BPM MUSE EKG WV Interval 150 ms MUSE EKG QRS Interval 114 ms MUSE EKG QT Interval 408 ms MUSE EKG QTC Interval 455 ms MUSE EKG P [place] 54 degrees MUSE EKG R [place] 15 degrees MUSE EKG T Wave [place] 38 degrees MUSE EKG 10/29/2024 3:13 PM EST 11/14/2024 10:14 AM EST Impressions MUSE EKG - 11/14/2024 10:14 AM EST NORMAL SINUS RHYTHM NORMAL ECG WHEN COMPARED WITH ECG OF 31-JAN-2024 09:27, INCOMPLETE RIGHT BUNDLE BRANCH BLOCK IS NO LONGER PRESENT Confirmed by Gavin Hernández ([id number]) on 11/14/2024 10:14:54 AM Brick Paving Checker Zoila CHIRINOS ECG ORDERABLES Final Resu lt MUSE EKG * Urinalysis With Microscopic (No Culture)-[place] ONLY (10/21/2024 11:51 AM EST) Color DARK YELLOW YELLOW 10/21/2024 5:48 PM EST [facility] Appearance CLEAR CLEAR 10/21/2024 5:48 PM EST [facility] Specific [place] 1.018 1.001 - 1.035 10/21/2024 5:48 PM EST [facility] PH 7.0 5.0 - 8.0 10/21/2024 5:48 PM EST [facility] Glucose NEGATIVE NEGATIVE 10/21/2024 5:48 PM EST [facility] Bilirubin NEGATIVE NEGATIVE 10/21/2024 5:48 PM EST [facility] Ketones NEGATIVE NEGATIVE 10/21/2024 5:48 PM EST [facility] Occult Blood NEGATIVE NEGATIVE 10/21/2024 5:48 PM EST [facility] Protein NEGATIVE NEGATIVE 10/21/2024 5:48 PM EST [facility] Nitrite NEGATIVE NEGATIVE 10/21/2024 5:48 PM EST [facility] Leukocyte Esterase NEGATIVE NEGATIVE 10/21/2024 5:48 PM EST [facility] WBC, Urine NONE SEEN 0 - 5 /HPF 10/21/2024 5:48 PM EST [facility] RBC 0-2 0 - 2 /HPF 10/21/2024 5:48 PM EST [facility] Squamous Epithelial Cells NONE SEEN < OR = 5 /HPF 10/21/2024 5:48 PM EST [facility] Bacteria NONE SEEN NONE SEEN /HPF 10/21/2024 5:48 PM EST [facility] Hyaline Cast NONE SEEN NONE SEEN /LPF 10/21/2024 5:48 PM EST [facility] Note See Comments 10/21/2024 5:48 PM EST [facility] Comment: This urine was analyzed for the presence of WBC, RBC, bacteria, casts, and other formed elements. Only those elements seen were reported. 10/21/2024 11:5 1 AM EST 10/21/2024 4:54 PM EST us Molina Dias MD LAB URINE ORDERABLES Final Res ult Performing Organization Address [facility] de Phone Number [facility] [address] [address], [place] [phone] [facility] [address] [place] [address] * Urine Culture, Routine (10/21/2024 11:51 AM EST) Micro Number [id number] 10/22/2024 11:53 AM EST [facility] Specimen Quality Adequate 10/22/2024 11:53 AM EST [facility] Source URINE, CLEAN CATCH 10/22/2024 11:53 AM EST [facility] Status FINAL 10/22/2024 11:53 AM EST [facility] Result No Growth 10/22/2024 11:53 AM EST [facility] Urine Urine specimen collection, clean catch / Unknown 10/21/2024 11:51 AM EST 10/21/2024 9:34 PM EST us Molina Dias MD LAB MICROBIOLOGY - GENERAL ORD ERABLES Final Result Performing Organization Address [facility] de Phone Number [facility] [address] [address], [place] [phone] [facility] [address] [place] [address] * (ABNORMAL) Iron, TIBC and Ferritin Panel (10/21/2024 11:34 AM EST) Iron, Total 52 50 - 180 mcg/dL 10/22/2024 4:01 AM EST [facility] Iron Binding Capacity 362 250 - 425 mcg/dL (calc) 10/22/2024 4:01 AM EST [facility] % Saturation 14(L) 20 - 48 % (calc) 10/22/2024 4:01 AM EST [facility] Ferritin 26 24 - 380 ng/mL 10/21/2024 11:25 PM EST [facility] Blood Structure of peripheral vein / Unknown 10/21/2024 11:34 AM EST 10/21/2024 10:18 PM EST Narrative [facility] - 10/22/2024 12:31 PM EST FASTING:YES us Molina Dias MD LAB BLOOD ORDERABLES Final Res ult Performing Organization Address City/[facility]/ZIP Co de Phone Number [facility] [address], [place] [address], [place] [phone] [facility] [address] [address] * PSA, Total Reflex to Free (10/21/2024 11:34 AM EST) PSA, Total <0.1 < OR = 4.0 ng/mL 10/22/2024 12:30 PM EST [facility] Comment: The Total PSA value from this assay system is standardized against the equimolar PSA standard. The test result will be approximately 20% higher when compared to the WHO-standardized Total PSA (Siemens assay). Comparison of serial PSA results should be interpreted with this fact in mind. PSA was performed using the Reyna Mirna Immunoassay method. Values obtained from different assay methods cannot be used interchangeably. PSA levels, regardless of value, should not be interpreted as absolute evidence of the presence or absence of disease. 10/21/2024 11:3 4 AM EST 10/21/2024 10:47 PM EST Narrative [facility] - 10/22/2024 12:31 PM EST FASTING:YES us Molina Dias MD LAB BLOOD ORDERABLES Final Res ult Performing Organization Address [facility]/ZIP Co de Phone Number [facility] 200 [facility] 3rd Floor, [place] [address], [place] [phone] [facility] [address] [place] [address] * (ABNORMAL) CBC (10/21/2024 11:34 AM EST) White Blood Cell Count 7.0 3.8 - 10.8 Thousand/ uL 10/21/2024 7:53 PM EST [facility] Red Blood Cell Count 4.89 4.20 - 5.80 Million/u L 10/21/2024 7:53 PM EST [facility] Hemoglobin 13.0(L) 13.2 - 17.1 g/dL 10/21/2024 7:53 PM EST [facility] Hematocrit 40.6 38.5 - 50.0 % 10/21/2024 7:53 PM EST [facility] MCV 83.0 80.0 - 100.0 fL 10/21/2024 7:53 PM EST [facility] MCH 26.6(L) 27.0 - 33.0 pg 10/21/2024 7:53 PM EST [facility] MCHC 32.0 32.0 - 36.0 g/dL 10/21/2024 7:53 PM EST [facility] Comment: For adults, a slight decrease in the calculated MCHC value (in the range of 30 to 32 g/dL) is most likely not clinically significant; however, it should be interpreted with caution in correlation with other red cell parameters and the patient's clinical condition. RDW 16.0(H) 11.0 - 15.0 % 10/21/2024 7:53 PM EST [facility] Platelet Count 384 140 - 400 Thousand/ uL 10/21/2024 7:53 PM EST [facility] MPV 9.7 7.5 - 12.5 fL 10/21/2024 7:53 PM EST [facility] Blood Structure of peripheral vein / Unknown 10/21/2024 11:34 AM EST 10/21/2024 4:42 PM EST Narrative [facility] - 10/22/2024 12:31 PM EST FASTING:YES us Molina Dias MD LAB BLOOD ORDERABLES Final Res ult [facility] [address] [facility] [address], [place] [address], [place] [phone] [facility] [address] [place] [address] * (ABNORMAL) Lipid panel (10/21/2024 11:34 AM EST) Cholesterol, Total 106 <200 mg/dL 10/22/2024 4:01 AM EST [facility] HDL Cholesterol 36(L) > OR = 40 mg/dL 10/22/2024 4:01 AM EST [facility] Triglycerides 136 <150 mg/dL 10/22/2024 4:01 AM EST [facility] LDL-Cholesterol 48 mg/dL (calc) 10/22/2024 4:02 AM EST [facility] Comment: Reference range: <100 Desirable range <100 mg/dL for primary prevention; ?? <70 mg/dL for patients with CHD or diabetic patients with > or = 2 CHD risk factors. LDL-C is now calculated using the Brenda calculation, which is a validated novel method providing better accuracy than the Friedewald equation in the estimation of LDL-C. Leobardo SS et al. ANDREW. 2013;310(19): 8897-7344 (http://education.Aupix/faq/PEH098) Chol/HDLC Ratio 2.9 <5.0 (calc) 10/22/2024 4:02 AM EST [facility] Non HDL Cholesterol 70 <130 mg/dL (calc) 10/22/2024 4:02 AM [facility] Comment: For patients with diabetes plus 1 [...] ORDERABLES Final Res ult [facility] 200 [facility] [address]rd [address], [place] [address], [facility] [address] [place] [phone] * (ABNORMAL) Comprehensive Metabolic Panel (10/21/2024 11:34 AM EST) [facility] Glucose 106(H) 65 - 99 mg/dL 10/22/2024 4:01 AM [facility] Comment: ? Fasting reference interval For someone without known diabetes, a glucose value between 100 and 125 mg/dL is consistent with prediabetes and should be confirmed with a follow-up test. BUN 17 7 - 25 mg/dL 10/22/2024 4:01 AM [facility] Creatinine 0.95 0.70 - 1.28 mg/dL 10/22/2024 4:01 AM [facility] eGFR 81 > OR = 60 mL/min/1. 73m2 10/22/2024 4:01 AM [facility] [employer] Bun/Creatinine Ratio SEE NOTE: 6 - 22 (calc) 10/22/2024 4:01 AM [facility] Comment: ?? Not Reported: BUN and Creatinine are within ?? reference range. ? Sodium 136 135 - 146 mmol/L 10/22/2024 4:01 AM [facility] Potassium 4.6 3.5 - 5.3 mmol/L 10/22/2024 4:01 AM [facility] Chloride 102 98 - 110 mmol/L 10/22/2024 4:01 AM [facility] Carbon Dioxide 26 20 - 32 mmol/L 10/22/2024 4:01 AM [facility] Calcium 9.7 8.6 - 10.3 mg/dL 10/22/2024 4:01 AM [facility] Protein, Total 7.7 6.1 - 8.1 g/dL 10/22/2024 4:01 AM [facility] Albumin 4.3 3.6 - 5.1 g/dL 10/22/2024 4:01 AM [facility] Globulin 3.4 1.9 - 3.7 g/dL (calc) 10/22/2024 4:01 AM [facility] Albumin/Globuli n Ratio 1.3 1.0 - 2.5 (calc) 10/22/2024 4:01 AM EST [facility] Bilirubin, Total 0.4 0.2 - 1.2 mg/dL 10/22/2024 4:01 AM EST [facility] Alkaline Phosphatase 95 35 - 144 U/L 10/22/2024 4:01 AM EST [facility] AST 17 10 - 35 U/L 10/22/2024 4:01 AM EST [facility] ALT 13 9 - 46 U/L 10/22/2024 4:01 AM EST [facility] Blood Structure of peripheral vein / Unknown 10/21/2024 11:34 AM EST 10/21/2024 10:18 PM EST Narrative [facility] - 10/22/2024 12:31 PM EST FASTING:YES us Molina Dias MD LAB BLOOD ORDERABLES Final Res ult [facility] 200 [facility] [address], [place] [address], [facility] [address] [place] [address] * (ABNORMAL) Hemoglobin A1c (08/29/2024 10:20 AM EST) Hemoglobin A1C 7.8(H) <5.7 % of total Hgb 08/29/2024 8:54 PM EST [facility] Comment: For someone without known diabetes, a [...] (MG/DL) 177 mg/dL 08/29/2024 8:54 PM EST [facility] eAG (MMOL/L) 9.8 mmol/L 08/29/2024 8:54 PM EST [facility] Blood Structure of peripheral vein / Unknown 08/29/2024 10:20 AM EST 08/29/2024 5:50 PM EST Narrative [facility] - 08/30/2024 1:23 AM EST FASTING:YES us Molina Dias MD LAB BLOOD ORDERABLES Final Res ult Performing Organization Address [facility] de Phone Number [facility] [address], [place] [address], [place] [phone] [facility] [address] [place] [address] * Microalbumin, Random Urine with Creatinine (04/02/2024 3:27 PM EDT) Pathologist [facility] Creatinine, Random Urine 294 20 - 320 mg/dL 04/03/2024 4:10 PM EDT [facility] Microalbumin 3.9 mg/dL 04/03/2024 4:10 PM EDT [facility] Comment: Reference Range Not established Microalbumin/Crea tinine Ratio, Random Urine 13 <30 mg/g creat 04/03/2024 4:10 PM EDT [facility] Comment: The ADA defines abnormalities in albumin [...] ORDERABLES Final Res ult Performing Organization Address [facility] Co de Phone Number [facility] [address], [place] [address], [place] [phone] [facility] [address] [place] [address] * CT Chest without Contrast (10/19/2023 6:49 [...] obtain the completed interpretation. ? Workstation ID: [id number] Up-to-date CT equipment and radiation dose reduction [...] Mild degenerative vertebral disease. Resulting Agency Comment [id number] Procedure Note Candelario Mae MD PhD - [...] possible to obtain thecompleted interpretation. Workstation ID: [id number] Up-to-date CT equipment and radiation dose reduction techniques wereemployed. CTDIvol: 15.3 mGy. DLP: 595 mGy-cm. us Kati RAE IMG CT PROCEDURES Final Result * DIABETES EYE EXAM (08/17/2023) 08/17/2023 us Onbase Scan [facility] Final Resu lt * COLONOSCOPY (01/23/2022) 01/23/2022 us Onbase Scan [facility] Final Resu lt from Last 3 Months or Most Recently Relevant to Health Maintenance Insurance MEDICARE [facility] Advance Directives Documents on File Type Date Recorded Patient Optical Laboratory Manager Expl anation Health Care Proxy 06/30/2014 12:00 AM Briana [...] Spouse Healthcare Proxy - Primary Care Teams Lobby Porter Relationship Specialty Start Date End Date Molina Dias MD [address] [place] [id number] PCP - General Family Medicine 04/05/17
== END 2024-12-11 15:52 | disposition home or self-care (01) ==
LOC: HO.HNS 15:28
PROVIDERS: PCP Family Medicine; Visit Provider Physician Assistant
DX: M51.16 Intervertebral disc disorders with radiculopathy, lumbar region (principal)
CPT/HCPCS: 99024

== ENCOUNTER → 2024-12-11 15:28 | Outpatient (BNVA) | payer MEDICARE, OTHER, SELFPAY | PROVIDERS: PCP Family Medicine; Visit Provider Physician Assistant | DX: M51.16 Intervertebral disc disorders with radiculopathy, lumbar region (principal) | CPT/HCPCS: 99212 ==